=== PATIENT | male | born 1945 | race African-American/Black ===

== ENCOUNTER → 2017-02-05 | Outpatient (CLI) | payer MEDICARE ==
[~2017-02-05] MED LIST: ALPRAZOLAM2 MG PO; AMARYL2 MG PO; AMLACTIN 12% TP; AMLODIPINE BESY1 TAB PO; ASPIRIN ADULT L81 M2 PO; ASPIRIN81 M1 PO; Amaryl2 MG PO; BACLOFEN20 M1 PO; CLARITIN10 MG PO; CLONIDINE HCL0.2 MG PO; CLONIDINE0.2 MG PO; CYMBALTA30 MG PO; CYMBALTA60 MG PO; GLUCOPHAGE1000 MG PO; HCTZ/LISINOPRIL1 TA1 PO; HYDROCODONE BIT1 T11 PO; INDOMETHACIN50 MG PO; LABETALOL HCL300 MG PO; METFORMIN1000 MG PO; MOTRIN800 MG PO; NATURE'S BLEN2000 IU PO; NORVASC10 MG PO; OMEPRAZOLE D/R20 MG PO; PAMELOR25 MG PO; PERCOCET 325 MG1 TA2 PO; PRILOSEC20 M1 PO; TRAD5TAB1 PO; TRAMADOL HCL50 MG PO; TRAZODONE50 MG PO; VITAMIN D1000 IU PO; ZITHROMAX Z PA250 MG PO
== END | disposition home or self-care (01) ==
LOC: CT 01-23 14:00
DX: D35.02 Benign neoplasm of left adrenal gland (principal); M54.5 Low back pain; G89.29 Other chronic pain; R10.33 Periumbilical pain; N20.0 Calculus of kidney; D35.01 Benign neoplasm of right adrenal gland

== ENCOUNTER → 2017-02-25 | Outpatient (CLI) | payer MEDICARE ==
[2017-02-25 14:49] LABS: BASO % 0.7 % (0.0-1.0); EOS # 0.1 10*3/uL (0.0-0.4); EOS % 0.8 % (1.0-4.0); HEMATOCRIT 41.3 % (42.0-52.0); LYMPH # 2.2 10*3/uL (1.3-4.4); LYMPH % 36.2 % (27.0-41.0); MEAN CELL VOLUME 84.5 fl (80.0-94.0); MEAN CORPUSCULAR HGB 26.6 pg (27.0-31.0); MEAN CORPUSCULAR HGB CONC 31.5 g/dl (33.0-37.0); MEAN PLATELET VOLUME 10.5 fl (9.6-12.3); MONO # 0.4 10*3/uL (0.1-1.0); MONO % 6.1 % (3.0-9.0); NEUT # 3.4 10*3/uL (2.3-7.9); NEUT % 55.7 % (47.0-73.0); PLATELET COUNT AUTOMATED 212 10*3/uL (130-400); RED BLOOD COUNT 4.89 10*6/uL (4.50-5.90); RED CELL DISTRI WIDTH 15.1 % (0-14.5)
[2017-02-25 15:24] LABS: ALBUMIN 3.9 gm/dl (3.1-4.5); PHOSPHOROUS 3.4 mg/dL (2.5-4.9); POTASSIUM 3.9 mmol/L (3.5-5.1)
[2017-02-25 15:48] LABS: BILIRUBIN 1+ (NEGATIVE); BLOOD TRACE-LYSED (NEGATIVE); CLARITY CLEAR (CLEAR); COLOR YELLOW (YELLOW); GLUCOSE NEGATIVE (NEGATIVE); KETONE TRACE (NEGATIVE); LEUKO ESTERASE NEGATIVE (NEGATIVE); NITRITE NEGATIVE (NEGATIVE); PH 5.5 (5.0-9.0); PROTEIN 2+ (NEGATIVE); SPECIFIC GRAVITY >= 1.030 (1.005-1.030); UROBILINOGEN 0.2 E.U./dl (0.2-1.0)
[2017-02-25 16:00] LABS: BACTERIA TRACE; URINE REFLEX COMMENT NO (NO); WBC 0-2 wbc/hpf (0-5)
[2017-02-25 16:06] LABS: URINE TP/CRE RATIO 0.4 (<0.21)
== END | disposition home or self-care (01) ==
LOC: LAB 13:34
PROVIDERS: Internal Medicine Nephrology
DX: N18.3 Chronic kidney disease, stage 3 (moderate) (principal); N25.81 Secondary hyperparathyroidism of renal origin; Z79.899 Other long term (current) drug therapy

== ENCOUNTER → 2017-03-03 | Outpatient (CLI) | payer MEDICARE ==
[2017-03-03 12:28] LABS: URINE TOTAL PROTEIN CONC 35.8 mg/dL (<11.9)
== END | disposition home or self-care (01) ==
LOC: LAB 11:17
PROVIDERS: Internal Medicine Nephrology
DX: N18.3 Chronic kidney disease, stage 3 (moderate) (principal); N25.81 Secondary hyperparathyroidism of renal origin; Z79.899 Other long term (current) drug therapy

== ENCOUNTER → 2017-03-06 | Outpatient (CLI) | payer MEDICARE ==
[2017-03-06 15:33] LABS: BILIRUBIN 1+ (NEGATIVE); BLOOD 1+ (NEGATIVE); CLARITY SL CLOUDY (CLEAR); COLOR YELLOW (YELLOW); GLUCOSE NEGATIVE (NEGATIVE); KETONE TRACE (NEGATIVE); LEUKO ESTERASE TRACE (NEGATIVE); NITRITE NEGATIVE (NEGATIVE); PROTEIN 3+ (NEGATIVE); SPECIFIC GRAVITY 1.025 (1.005-1.030); UROBILINOGEN 0.2 E.U./dl (0.2-1.0)
[2017-03-06 15:38] LABS: BASO % 0.3 % (0.0-1.0); EOS % 0.7 % (1.0-4.0); HEMATOCRIT 39.9 % (42.0-52.0); HEMOGLOBIN 12.5 g/dl (14.0-18.0); LYMPH # 2.1 10*3/uL (1.3-4.4); LYMPH % 35.3 % (27.0-41.0); MEAN CELL VOLUME 84.4 fl (80.0-94.0); MEAN CORPUSCULAR HGB 26.4 pg (27.0-31.0); MEAN CORPUSCULAR HGB CONC 31.3 g/dl (33.0-37.0); MEAN PLATELET VOLUME 10.2 fl (9.6-12.3); MONO # 0.4 10*3/uL (0.1-1.0); NEUT # 3.4 10*3/uL (2.3-7.9); NEUT % 56.4 % (47.0-73.0); PLATELET COUNT AUTOMATED 202 10*3/uL (130-400); RED BLOOD COUNT 4.73 10*6/uL (4.50-5.90); RED CELL DISTRI WIDTH 14.8 % (0-14.5)
[2017-03-06 15:42] LABS: HYALINE CAST 0-2
[2017-03-06 15:53] LABS: HEMOGLOBIN A1c 6.3 % (4.8-5.6)
[2017-03-06 16:00] LABS: ALBUMIN 3.7 gm/dl (3.1-4.5); BILIRUBIN, TOTAL 0.4 mg/dl (0.2-1.0); POTASSIUM 4.1 mmol/L (3.5-5.1); TOTAL PROTEIN 7.5 gm/dL (6.4-8.2)
== END ==
LOC: LAB 14:27
PROVIDERS: Nurse Practitioner Family
DX: E55.9 Vitamin D deficiency, unspecified (principal); I10 Essential (primary) hypertension; E11.9 Type 2 diabetes mellitus without complications

== ENCOUNTER → 2017-05-26 | Outpatient (CLI) | payer MEDICARE | LOC: RESCLI 05-12 03:33 | DX: Z12.11 Encounter for screening for malignant neoplasm of colon (principal); E11.65 Type 2 diabetes mellitus with hyperglycemia; K21.9 Gastro-esophageal reflux disease without esophagitis; I10 Essential (primary) hypertension; G89.29 Other chronic pain; M54.41 Lumbago with sciatica, right side; E55.9 Vitamin D deficiency, unspecified; G62.9 Polyneuropathy, unspecified; D17.9 Benign lipomatous neoplasm, unspecified; Z86.73 Personal history of transient ischemic attack (TIA), and cerebral infarction without residual deficits; Z72.0 Tobacco use; Z71.6 Tobacco abuse counseling; Z88.0 Allergy status to penicillin ==

== ENCOUNTER → 2017-07-16 | Outpatient (CLI) | payer MEDICARE | END | disposition home or self-care (01) | LOC: RESCLI 01:38 | DX: Z12.11 Encounter for screening for malignant neoplasm of colon (principal); E11.65 Type 2 diabetes mellitus with hyperglycemia; K21.9 Gastro-esophageal reflux disease without esophagitis; I10 Essential (primary) hypertension; M54.41 Lumbago with sciatica, right side; G89.29 Other chronic pain; G62.9 Polyneuropathy, unspecified; D17.9 Benign lipomatous neoplasm, unspecified; E55.9 Vitamin D deficiency, unspecified; N52.9 Male erectile dysfunction, unspecified; Z86.73 Personal history of transient ischemic attack (TIA), and cerebral infarction without residual deficits; Z72.0 Tobacco use; Z71.6 Tobacco abuse counseling ==

== ENCOUNTER → 2017-10-15 | Outpatient (CLI) | payer MEDICARE | END | disposition home or self-care (01) | LOC: RESCLI 01:23 | DX: I10 Essential (primary) hypertension (principal); E11.65 Type 2 diabetes mellitus with hyperglycemia; K21.9 Gastro-esophageal reflux disease without esophagitis; G62.9 Polyneuropathy, unspecified; G89.29 Other chronic pain; M54.41 Lumbago with sciatica, right side; D17.9 Benign lipomatous neoplasm, unspecified; N52.9 Male erectile dysfunction, unspecified; E55.9 Vitamin D deficiency, unspecified; Z72.0 Tobacco use; Z86.73 Personal history of transient ischemic attack (TIA), and cerebral infarction without residual deficits ==

== ENCOUNTER → 2017-12-12 | Outpatient (CLI) | payer MEDICARE ==
[2017-12-12 11:35] LABS: BILIRUBIN NEGATIVE (NEGATIVE); BLOOD 2+ (NEGATIVE); CLARITY SL CLOUDY (CLEAR); COLOR YELLOW (YELLOW); GLUCOSE NEGATIVE (NEGATIVE); KETONE 1+ (NEGATIVE); LEUKO ESTERASE NEGATIVE (NEGATIVE); NITRITE NEGATIVE (NEGATIVE); PH 5.5 (5.0-9.0); SPECIFIC GRAVITY >= 1.030 (1.005-1.030); UROBILINOGEN 0.2 E.U./dl (0.2-1.0)
[2017-12-12 11:36] LABS: BASO % 0.3 % (0.0-1.0); EOS % 0.1 % (1.0-4.0); HEMATOCRIT 39.6 % (42.0-52.0); HEMOGLOBIN 12.9 g/dl (14.0-18.0); LYMPH % 25.5 % (27.0-41.0); MEAN CORPUSCULAR HGB 26.4 pg (27.0-31.0); MEAN CORPUSCULAR HGB CONC 32.6 g/dl (33.0-37.0); MEAN PLATELET VOLUME 10.4 fl (9.6-12.3); MONO # 0.8 10*3/uL (0.1-1.0); MONO % 6.6 % (3.0-9.0); NEUT # 7.8 10*3/uL (2.3-7.9); NEUT % 67.2 % (47.0-73.0); PLATELET COUNT AUTOMATED 243 10*3/uL (130-400); RED BLOOD COUNT 4.89 10*6/uL (4.50-5.90); WHITE BLOOD COUNT 11.7 10*3/uL (4.8-10.8)
[2017-12-12 11:51] LABS: BACTERIA TRACE
[2017-12-12 12:00] LABS: CREATININE 1.88 mg/dL (0.70-1.30); POTASSIUM 3.6 mmol/L (3.5-5.1)
[2017-12-12 12:04] LABS: ACT PARTIAL THROMBO TIME 24.3 SECONDS (20.8-31.5)
== END | disposition home or self-care (01) ==
LOC: LAB 09:32
PROVIDERS: Surgery
DX: Z01.818 Encounter for other preprocedural examination (principal); K21.9 Gastro-esophageal reflux disease without esophagitis; R79.89 Other specified abnormal findings of blood chemistry; R79.1 Abnormal coagulation profile

== ENCOUNTER → 2017-12-18 | Day surgery (SDC) | payer MEDICARE ==
[~2017-12-18] VITALS: Ht 167.6 cm; Wt 70.3 kg
[~2017-12-18] MED LIST changes: +NORCO 5-325 TA1 EACH PO
--- NOTE | ~2017-12-18 | O ---
[place], [place] OPERATIVE NOTE NAME: MARIEL DOUGLAS UNIT #: [id number] ROOM: DOCTOR: TIM JULIAN MD BIRTHDATE: [birth year] DOS: 12/18/2017 PREOPERATIVE DIAGNOSIS: Back and left lower quadrant lipomas. POSTOPERATIVE DIAGNOSIS: Back and left lower quadrant lipomas. PROCEDURE: Excision of back and left lower quadrant lipomas. SURGEON: Tim Julian MD STEEL MOLDER: YENNIFER. ANESTHESIA: MAC with local (1% plain lidocaine). INDICATIONS: This is a 72-year-old -Ivorian gentleman who has got a history of 2 lipomas, 1 on his back and 1 in the left lower quadrant that are symptomatic and he would like to have them removed. The procedure and its complications were explained to the patient in detail preoperatively. Complications that were discussed included but were not limited to bleeding, infection, hematoma/seroma/abscess formation and prolonged pain. He agreed to proceed. DESCRIPTION OF PROCEDURE: After identifying the patient, the patient was brought to the operating suite and placed in the right lateral position. It was decided to remove the back lipoma first. After time-out procedure was called, IV sedation was administered by the anesthesia team and the parts were then painted and draped in the usual sterile fashion. An incision was marked and local anesthesia (1% plain lidocaine) was infiltrated in the line of the incision. The incision was made and was deepened in layers. The capsule of the lipoma was incised and the lipoma was excised in its entirety with the help of blunt and sharp dissection. Total size of this lipoma was approximately 5.5 cm. It was sent for histopathological diagnosis. Hemostasis was achieved and saline was used for irrigation. Thereafter, the subcutaneous tissue was approximated with the help of 3-0 Vicryl in a running fashion and the skin edges were approximated with help of 4-0 Vicryl in a subcuticular running fashion. The patient was now turned in a supine position and the parts were then painted and draped in the usual sterile fashion. An elliptical incision was marked and local anesthesia was infiltrated in the line of incision. The skin incision was made and deepened in layers. The lipoma itself was excised in its entirety after blunt and sharp dissection and sent for histopathological diagnosis. This lipoma was approximately 15 x 15 cm. Hemostasis was achieved with the help of electrocautery. Thereafter, saline was used for irrigation. The subcutaneous tissue was then approximated with the help of 3-0 Vicryl in a running fashion and the skin edges were approximated with the help of subcuticular 4-0 Vicryl. A dressing was placed. The patient tolerated procedure well and was brought back to the recovery in stable fashion. There were no complications. Dr. Tim Julian, the attending surgeon, was present throughout the operating case. [place], [place] OPERATIVE NOTE NAME: MARIEL DOUGLAS UNIT #: [id number] ROOM: DOCTOR: TIM JULIAN MD BIRTHDATE: [birth year] Tim Julian MD CM:OPRECORD:OPERATIVE NOTE [id number] TIM JULIAN MD 12/19/17 1151 interface
[2017-12-18 09:09] VITALS: BP 140/70
[2017-12-18 10:55] VITALS: BP 105/51
[2017-12-18 11:10] VITALS: BP 105/61
[2017-12-18 11:23] VITALS: BP 125/83
== END | disposition home or self-care (01) ==
LOC: SDC 12-12 09:30
DX: D17.1 Benign lipomatous neoplasm of skin and subcutaneous tissue of trunk (principal); I10 Essential (primary) hypertension; F41.9 Anxiety disorder, unspecified; F32.9 Major depressive disorder, single episode, unspecified; Z83.3 Family history of diabetes mellitus; F17.210 Nicotine dependence, cigarettes, uncomplicated; Z86.73 Personal history of transient ischemic attack (TIA), and cerebral infarction without residual deficits; J45.909 Unspecified asthma, uncomplicated; K21.9 Gastro-esophageal reflux disease without esophagitis; Z79.899 Other long term (current) drug therapy; E11.40 Type 2 diabetes mellitus with diabetic neuropathy, unspecified; M19.90 Unspecified osteoarthritis, unspecified site

== ENCOUNTER 2018-07-04 12:29 | Inpatient (IN) | payer MEDICARE ==
[~2018-07-04] VITALS: Ht 167.6 cm; Wt 59.2 kg
--- NOTE | ~2018-07-04 | EKG ---
[place], [place] ELECTROCARDIOGRAM REPORT NAME: MARIEL DOUGLAS UNIT #: [id number] ROOM: 511 DOCTOR: BEKA DRAFT REPORT BIRTHDATE: [birth year] [facility] Test Date: 2018-07-04 Test Time: 12:54:36 Pat Name: MARIEL DOUGLAS Department: Room: 511 Gender: M Mine Wedge Sawyer: LEONIDES : 1945 Requested By: TOVA ROMO Order Number: [id number] Reading MD: Soha Vargas MD Measurements Intervals [place] Rate: 89 P: 64 MI: 179 QRS: 58 QRSD: 99 T: 55 QT: 364 QTc: 443 Interpretive Statements Sinus rhythm Probable left atrial enlargement Minimal ST elevation, anterior leads Electronically Signed On 07-05-2018 6:26:46 PDT by Soha Vargas MD CM:EKGRPT:ELECTROCARDIOGRAM REPORT [id number] TOVA EPPS DRAFT REPORT TOVA ROMO DO
[~2018-07-04 12:29] MED LIST changes: +CLEOCIN HCL150 MG PO
[2018-07-04 12:30] VITALS: BP 140/85
[2018-07-04 12:57] LABS: BASO % 0.3 % (0.0-1.0); EOS # 0.1 10*3/uL (0.0-0.4); EOS % 0.8 % (1.0-4.0); HEMATOCRIT 39.1 % (42.0-52.0); HEMOGLOBIN 12.3 g/dl (14.0-18.0); LYMPH # 2.1 10*3/uL (1.3-4.4); LYMPH % 27.9 % (27.0-41.0); MEAN CELL VOLUME 84.1 fl (80.0-94.0); MEAN CORPUSCULAR HGB 26.5 pg (27.0-31.0); MEAN CORPUSCULAR HGB CONC 31.5 g/dl (33.0-37.0); MEAN PLATELET VOLUME 10.3 fl (9.6-12.3); MONO # 0.7 10*3/uL (0.1-1.0); MONO % 8.8 % (3.0-9.0); NEUT # 4.6 10*3/uL (2.3-7.9); NEUT % 61.9 % (47.0-73.0); PLATELET COUNT AUTOMATED 216 10*3/uL (130-400); RED BLOOD COUNT 4.65 10*6/uL (4.50-5.90); RED CELL DISTRI WIDTH 15.3 % (0-14.5); WHITE BLOOD COUNT 7.4 10*3/uL (4.8-10.8)
[2018-07-04 13:03] LABS: ACT PARTIAL THROMBO TIME 25.6 SECONDS (20.8-31.5)
[2018-07-04 13:10] LABS: ALBUMIN 3.4 gm/dl (3.1-4.5); ALKALINE PHOSPHATASE 63 U/L (45-117); BUN 18 mg/dl (7-24); CHLORIDE 103 mmol/L (98-107); CREATININE 1.74 mg/dL (0.70-1.30); LIPASE 481 U/L (73-393); POTASSIUM 3.9 mmol/L (3.5-5.1); SGOT/AST 18 IU/L (3-35); SGPT/ALT 19 U/L (12-78); SODIUM 140 mmol/L (136-145); TOTAL PROTEIN 7.8 gm/dL (6.4-8.2)
[2018-07-04 13:14] LABS: TROPONIN I < 0.015 ng/ml (<0.045)
[2018-07-04 13:43] VITALS: BP 136/80
[2018-07-04 14:45] VITALS: BP 157/80
[2018-07-04] MEDS ORDERED: FLUOXETINE HYDR40 MG PO (15:05)
[2018-07-04] MEDS ORDERED: 'XANAX1 MG PO (15:36)
[2018-07-04] MEDS ORDERED: PROMETHAZINE-P118 ML PO (15:46)
[2018-07-04 16:00] VITALS: BP 157/80
[2018-07-04] MEDS ORDERED: TYLENOL WITH C1 EACH PO (19:01)
[2018-07-04] MEDS ORDERED: VIAGRA25 MG PO (19:09)
[2018-07-04] MEDS ORDERED: NEURONTIN300 MG PO (19:09)
[2018-07-04] MEDS ORDERED: CYCLOBENZAPRINE10 MG PO (19:10)
[2018-07-04] MEDS ORDERED: CIALIS10 MG PO (19:12)
[2018-07-04 20:00] VITALS: BP 173/79
[2018-07-05] VITALS: BP 151/82; BP 168/75
[2018-07-05 02:21] LABS: URINE AMPHETAMINES < 1000 (1000ng/ml); URINE BARBITURATES < 200 (200ng/ml); URINE BENZODIAZEPINES > 200 (200ng/ml); URINE CANNABINOIDS (THC) < 50 (50ng/ml); URINE COCAINE > 300 (300ng/ml); URINE METHADONE < 300 (300ng/ml); URINE OPIATES > 300 (300ng/ml); URINE PHENCYCLIDINE < 25 (25ng/ml)
[2018-07-05 06:50] LABS: BASO % 0.3 % (0.0-1.0); EOS # 0.1 10*3/uL (0.0-0.4); EOS % 0.6 % (1.0-4.0); HEMATOCRIT 39.3 % (42.0-52.0); HEMOGLOBIN 12.1 g/dl (14.0-18.0); LYMPH # 2.1 10*3/uL (1.3-4.4); LYMPH % 26.2 % (27.0-41.0); MEAN CELL VOLUME 85.6 fl (80.0-94.0); MEAN CORPUSCULAR HGB 26.4 pg (27.0-31.0); MEAN CORPUSCULAR HGB CONC 30.8 g/dl (33.0-37.0); MEAN PLATELET VOLUME 10.8 fl (9.6-12.3); MONO # 0.6 10*3/uL (0.1-1.0); NEUT # 5.2 10*3/uL (2.3-7.9); NEUT % 64.6 % (47.0-73.0); PLATELET COUNT AUTOMATED 218 10*3/uL (130-400); RED BLOOD COUNT 4.59 10*6/uL (4.50-5.90); RED CELL DISTRI WIDTH 15.1 % (0-14.5)
[2018-07-05 07:05] LABS: CREATININE 1.76 mg/dL (0.70-1.30); FREE T4 1.02 ng/dl (0.76-1.46); PHOSPHOROUS 2.6 mg/dL (2.5-4.9); POTASSIUM 3.8 mmol/L (3.5-5.1)
[2018-07-05 07:13] LABS: THYROID STIM HORMONE (HS) 0.626 uIU/ml (0.358-4.75)
[2018-07-05 07:19] LABS: ACT PARTIAL THROMBO TIME 26.3 SECONDS (20.8-31.5)
[2018-07-05 08:00] VITALS: BP 172/86
[2018-07-05 08:12] LABS: VITAMIN D, 25-HYDROXY 30.2 ng/mL (30-100)
[2018-07-05 12:00] VITALS: BP 172/86
[2018-07-05 16:00] VITALS: BP 174/84
[2018-07-05 20:00] VITALS: BP 157/60
[2018-07-06] VITALS: BP 147/60
[2018-07-06 08:00] VITALS: BP 145/65
[2018-07-06] MEDS ORDERED: PROTONIX40 MG PO (13:38)
== END 2018-07-06 15:00 | disposition home or self-care (01) | DRG 897 ==
LOC: ED 12:29 → 5E 13:49 → EDHOLD 13:49 → 5E 14:05
PROVIDERS: Emergency Medicine; Internal Medicine
DX: F11.10 Opioid abuse, uncomplicated (principal); F14.929 Cocaine use, unspecified with intoxication, unspecified; R06.6 Hiccough; F12.10 Cannabis abuse, uncomplicated; M10.9 Gout, unspecified; G89.4 Chronic pain syndrome; B19.20 Unspecified viral hepatitis C without hepatic coma; I10 Essential (primary) hypertension; F17.210 Nicotine dependence, cigarettes, uncomplicated; J06.9 Acute upper respiratory infection, unspecified; R26.81 Unsteadiness on feet; Z71.6 Tobacco abuse counseling; Z88.0 Allergy status to penicillin; I25.2 Old myocardial infarction; Z83.3 Family history of diabetes mellitus; Z86.73 Personal history of transient ischemic attack (TIA), and cerebral infarction without residual deficits; Z82.49 Family history of ischemic heart disease and other diseases of the circulatory system; Z82.0 Family history of epilepsy and other diseases of the nervous system; Z79.899 Other long term (current) drug therapy; Z79.82 Long term (current) use of aspirin; F13.929 Sedative, hypnotic or anxiolytic use, unspecified with intoxication, unspecified

== ENCOUNTER → 2018-08-19 | Outpatient (CLI) | payer MEDICARE ==
[~2018-08-19] MED LIST changes: +'XANAX1 MG PO; +CIALIS10 MG PO; +CYCLOBENZAPRINE10 MG PO; +FLUOXETINE HYDR40 MG PO; +NEURONTIN300 MG PO; +PROMETHAZINE-P118 ML PO; +PROTONIX40 MG PO; +TYLENOL WITH C1 EACH PO; +VIAGRA25 MG PO
[2018-08-19 12:53] LABS: ALBUMIN 3.7 gm/dl (3.1-4.5); CREATININE 1.73 mg/dL (0.70-1.30); POTASSIUM 3.5 mmol/L (3.5-5.1); TOTAL PROTEIN 8.4 gm/dL (6.4-8.2)
[2018-08-19 12:57] LABS: BASO % 0.4 % (0.0-1.0); EOS # 0.1 10*3/uL (0.0-0.4); HEMOGLOBIN 12.9 g/dl (14.0-18.0); LYMPH # 2.5 10*3/uL (1.3-4.4); LYMPH % 36.7 % (27.0-41.0); MEAN CELL VOLUME 85.2 fl (80.0-94.0); MEAN CORPUSCULAR HGB 26.2 pg (27.0-31.0); MEAN CORPUSCULAR HGB CONC 30.7 g/dl (33.0-37.0); MEAN PLATELET VOLUME 10.4 fl (9.6-12.3); MONO # 0.5 10*3/uL (0.1-1.0); NEUT # 3.7 10*3/uL (2.3-7.9); NEUT % 54.5 % (47.0-73.0); PLATELET COUNT AUTOMATED 234 10*3/uL (130-400); RED BLOOD COUNT 4.93 10*6/uL (4.50-5.90); RED CELL DISTRI WIDTH 15.3 % (0-14.5); WHITE BLOOD COUNT 6.8 10*3/uL (4.8-10.8)
== END | disposition home or self-care (01) ==
LOC: LAB 11:08
PROVIDERS: Internal Medicine
DX: N40.1 Benign prostatic hyperplasia with lower urinary tract symptoms (principal); E55.9 Vitamin D deficiency, unspecified; E11.65 Type 2 diabetes mellitus with hyperglycemia; I10 Essential (primary) hypertension

== ENCOUNTER 2020-06-01 17:03 | Emergency (ER) | payer OTHER ==
[~2020-06-01] VITALS: Ht 167.6 cm; Wt 59.0 kg
[2020-06-01 18:58] LABS: LIPASE 893 U/L (73-393); TROPONIN I < 0.015 ng/ml (<0.045)
[2020-06-01 19:00] LABS: ALBUMIN 3.5 gm/dl (3.1-4.5); BILIRUBIN, DIRECT 0.1 mg/dL (0.0-0.2)
== END 2020-06-01 19:51 | disposition left against medical advice (07) ==
LOC: ED 17:03
PROVIDERS: Nurse Practitioner Family
DX: I16.1 Hypertensive emergency (principal); N17.9 Acute kidney failure, unspecified; R74.8 Abnormal levels of other serum enzymes; F17.210 Nicotine dependence, cigarettes, uncomplicated; Z79.899 Other long term (current) drug therapy; Z79.82 Long term (current) use of aspirin; Z88.0 Allergy status to penicillin

== ENCOUNTER 2020-06-01 20:36 | Inpatient (IN) | payer OTHER ==
[2020-06-01] VITALS (12 sets, daily range): BP systolic 168–212; BP diastolic 94–120
[~2020-06-01] VITALS: Ht 165.1 cm; Wt 58.3 kg
[~2020-06-01 20:36] MED LIST changes: -VITAMIN D1000 IU PO; +VITAMIN D350 MC2 PO
[2020-06-02] VITALS (7 sets, daily range): BP systolic 154–212; BP diastolic 74–102
[2020-06-02 05:31] LABS: CREATININE 2.15 mg/dL (0.70-1.30); POTASSIUM 3.4 mmol/L (3.5-5.1)
[2020-06-02 05:39] LABS: THYROID STIM HORMONE (HS) 2.13 uIU/ml (0.358-4.75)
[2020-06-02 06:02] LABS: BASO % 0.3 % (0.0-1.0); EOS % 0.7 % (1.0-4.0); HEMATOCRIT 43.2 % (42.0-52.0); LYMPH # 2.3 10*3/uL (1.3-4.4); LYMPH % 39.1 % (27.0-41.0); MEAN CELL VOLUME 86.2 fl (80.0-94.0); MEAN CORPUSCULAR HGB 26.5 pg (27.0-31.0); MEAN CORPUSCULAR HGB CONC 30.8 g/dl (33.0-37.0); MEAN PLATELET VOLUME 10.9 fl (9.6-12.3); MONO # 0.4 10*3/uL (0.1-1.0); MONO % 6.7 % (3.0-9.0); NEUT # 3.1 10*3/uL (2.3-7.9); PLATELET COUNT AUTOMATED 195 10*3/uL (130-400); RED BLOOD COUNT 5.01 10*6/uL (4.50-5.90); RED CELL DISTRI WIDTH 15.3 % (0-14.5); WHITE BLOOD COUNT 5.8 10*3/uL (4.8-10.8)
[2020-06-03] VITALS: BP 160/70
[2020-06-03 06:12] LABS: BASO % 0.4 % (0.0-1.0); EOS # 0.1 10*3/uL (0.0-0.4); EOS % 1.1 % (1.0-4.0); LYMPH # 2.2 10*3/uL (1.3-4.4); MEAN CELL VOLUME 85.9 fl (80.0-94.0); MEAN CORPUSCULAR HGB 26.6 pg (27.0-31.0); MONO # 0.4 10*3/uL (0.1-1.0); MONO % 7.5 % (3.0-9.0); NEUT # 2.9 10*3/uL (2.3-7.9); NEUT % 51.8 % (47.0-73.0); PLATELET COUNT AUTOMATED 199 10*3/uL (130-400); RED BLOOD COUNT 4.89 10*6/uL (4.50-5.90); RED CELL DISTRI WIDTH 15.3 % (0-14.5); WHITE BLOOD COUNT 5.6 10*3/uL (4.8-10.8)
[2020-06-03 06:15] LABS: CREATININE 2.16 mg/dL (0.70-1.30)
[2020-06-03 08:00] VITALS: BP 170/80; BP 176/90
[2020-06-03 08:33] LABS: URINE AMPHETAMINES < 1000 (1000ng/ml); URINE BARBITURATES < 200 (200ng/ml); URINE BENZODIAZEPINES < 200 (200ng/ml); URINE CANNABINOIDS (THC) < 50 (50ng/ml); URINE COCAINE > 300 (300ng/ml); URINE METHADONE < 300 (300ng/ml); URINE OPIATES > 300 (300ng/ml)
[2020-06-03 08:56] LABS: URINE PHENCYCLIDINE < 25 (25ng/ml)
[2020-06-03 10:49] LABS: BILIRUBIN NEGATIVE (NEGATIVE); BLOOD TRACE-LYSED (NEGATIVE); CLARITY CLEAR (CLEAR); COLOR YELLOW (YELLOW); GLUCOSE TRACE (NEGATIVE); KETONE NEGATIVE (NEGATIVE); PH 6.5 (5.0-9.0); SPECIFIC GRAVITY 1.015 (1.005-1.030); UROBILINOGEN 0.2 E.U./dl (0.2-1.0)
[2020-06-03 10:50] LABS: LEUKO ESTERASE NEGATIVE (NEGATIVE); NITRITE NEGATIVE (NEGATIVE)
[2020-06-03 10:53] LABS: BACTERIA 2+
[2020-06-03 12:00] VITALS: BP 196/96
[2020-06-03 16:00] VITALS: BP 172/92
[2020-06-03 20:00] VITALS: BP 193/99
[2020-06-03 20:11] VITALS: BP 190/90
[2020-06-04] VITALS: BP 147/97
[2020-06-04 02:50] VITALS: BP 141/67
[2020-06-04 06:09] LABS: BASO % 0.2 % (0.0-1.0); LYMPH # 1.2 10*3/uL (1.3-4.4); LYMPH % 9.3 % (27.0-41.0); MEAN CELL VOLUME 83.8 fl (80.0-94.0); MEAN CORPUSCULAR HGB 26.4 pg (27.0-31.0); MEAN CORPUSCULAR HGB CONC 31.5 g/dl (33.0-37.0); MEAN PLATELET VOLUME 10.9 fl (9.6-12.3); MONO # 0.5 10*3/uL (0.1-1.0); MONO % 3.9 % (3.0-9.0); NEUT # 10.8 10*3/uL (2.3-7.9); NEUT % 86.3 % (47.0-73.0); PLATELET COUNT AUTOMATED 207 10*3/uL (130-400); RED BLOOD COUNT 4.89 10*6/uL (4.50-5.90); RED CELL DISTRI WIDTH 15.2 % (0-14.5); WHITE BLOOD COUNT 12.5 10*3/uL (4.8-10.8)
[2020-06-04 06:15] LABS: ALBUMIN 2.9 gm/dl (3.1-4.5); CREATININE 2.16 mg/dL (0.70-1.30); POTASSIUM 3.5 mmol/L (3.5-5.1); TOTAL PROTEIN 6.7 gm/dL (6.4-8.2)
[2020-06-04 08:00] VITALS: BP 148/86
[2020-06-04 12:00] VITALS: BP 156/76
[2020-06-04 16:00] VITALS: BP 149/84
[2020-06-04 20:00] VITALS: BP 136/71
[2020-06-05] VITALS: BP 138/86
[2020-06-05 06:12] VITALS: BP 156/85
[2020-06-05 06:29] LABS: BASO % 0.1 % (0.0-1.0); EOS % 0.2 % (1.0-4.0); HEMATOCRIT 44.1 % (42.0-52.0); LYMPH % 17.5 % (27.0-41.0); MEAN CORPUSCULAR HGB 26.3 pg (27.0-31.0); MEAN CORPUSCULAR HGB CONC 31.3 g/dl (33.0-37.0); MEAN PLATELET VOLUME 11.7 fl (9.6-12.3); MONO # 0.5 10*3/uL (0.1-1.0); MONO % 4.7 % (3.0-9.0); NEUT # 8.7 10*3/uL (2.3-7.9); NEUT % 77.2 % (47.0-73.0); PLATELET COUNT AUTOMATED 224 10*3/uL (130-400); RED BLOOD COUNT 5.25 10*6/uL (4.50-5.90); RED CELL DISTRI WIDTH 15.5 % (0-14.5); WHITE BLOOD COUNT 11.2 10*3/uL (4.8-10.8)
[2020-06-05 07:03] LABS: ALBUMIN 2.8 gm/dl (3.1-4.5); CREATININE 2.25 mg/dL (0.70-1.30); POTASSIUM 3.7 mmol/L (3.5-5.1); TOTAL PROTEIN 7.3 gm/dL (6.4-8.2)
[2020-06-05 08:00] VITALS: BP 150/82
[2020-06-05 12:00] VITALS: BP 138/89
[2020-06-05 16:00] VITALS: BP 130/76
[2020-06-05 16:08] LABS: ALPHA-1-GLOBULIN 0.2 g/dL (0.0-0.4); ALPHA-2-GLOBULIN 0.9 g/dL (0.4-1.0); BETA GLOBULIN 1.1 g/dL (0.7-1.3); GAMMA GLOBULIN 0.9 g/dL (0.4-1.8); GLOBULIN, TOTAL 3.1 g/dL (2.2-3.9); M-SPIKE Not Observed g/dL (Not Observed); TOTAL PROTEIN, SERUM 6.1 g/dL (6.0-8.5)
[2020-06-05 20:00] VITALS: BP 150/79
[2020-06-06] VITALS (7 sets, daily range): BP systolic 142–196; BP diastolic 75–96
[2020-06-06 06:29] LABS: BASO % 0.2 % (0.0-1.0); EOS % 0.2 % (1.0-4.0); HEMATOCRIT 42.3 % (42.0-52.0); LYMPH # 1.4 10*3/uL (1.3-4.4); LYMPH % 12.3 % (27.0-41.0); MEAN CELL VOLUME 84.3 fl (80.0-94.0); MEAN CORPUSCULAR HGB 26.1 pg (27.0-31.0); MONO # 0.5 10*3/uL (0.1-1.0); MONO % 4.9 % (3.0-9.0); NEUT # 9.1 10*3/uL (2.3-7.9); PLATELET COUNT AUTOMATED 209 10*3/uL (130-400); RED BLOOD COUNT 5.02 10*6/uL (4.50-5.90); RED CELL DISTRI WIDTH 15.3 % (0-14.5)
[2020-06-06 06:45] LABS: CREATININE 2.37 mg/dL (0.70-1.30); POTASSIUM 4.1 mmol/L (3.5-5.1)
[2020-06-07] VITALS: BP 167/87
[2020-06-07 04:46] VITALS: BP 173/76
[2020-06-07 06:40] LABS: BASO % 0.1 % (0.0-1.0); EOS % 0.1 % (1.0-4.0); HEMATOCRIT 42.2 % (42.0-52.0); LYMPH # 1.4 10*3/uL (1.3-4.4); LYMPH % 12.9 % (27.0-41.0); MEAN CELL VOLUME 81.6 fl (80.0-94.0); MEAN CORPUSCULAR HGB 26.3 pg (27.0-31.0); MEAN CORPUSCULAR HGB CONC 32.2 g/dl (33.0-37.0); MEAN PLATELET VOLUME 10.9 fl (9.6-12.3); MONO # 0.5 10*3/uL (0.1-1.0); MONO % 4.6 % (3.0-9.0); PLATELET COUNT AUTOMATED 205 10*3/uL (130-400); RED BLOOD COUNT 5.17 10*6/uL (4.50-5.90); RED CELL DISTRI WIDTH 15.2 % (0-14.5); WHITE BLOOD COUNT 10.9 10*3/uL (4.8-10.8)
[2020-06-07 06:53] LABS: CREATININE 2.24 mg/dL (0.70-1.30); POTASSIUM 4.1 mmol/L (3.5-5.1)
[2020-06-07 08:00] VITALS: BP 153/76
[2020-06-07 12:00] VITALS: BP 156/74
[2020-06-07 16:00] VITALS: BP 130/61
[2020-06-07 20:00] VITALS: BP 148/71
[2020-06-08 06:34] LABS: BASO % 0.3 % (0.0-1.0); EOS # 0.1 10*3/uL (0.0-0.4); EOS % 1.1 % (1.0-4.0); HEMATOCRIT 41.8 % (42.0-52.0); LYMPH # 1.9 10*3/uL (1.3-4.4); MEAN CELL VOLUME 84.1 fl (80.0-94.0); MEAN CORPUSCULAR HGB CONC 30.9 g/dl (33.0-37.0); MEAN PLATELET VOLUME 10.8 fl (9.6-12.3); MONO # 0.5 10*3/uL (0.1-1.0); MONO % 7.8 % (3.0-9.0); NEUT # 3.7 10*3/uL (2.3-7.9); NEUT % 59.5 % (47.0-73.0); PLATELET COUNT AUTOMATED 228 10*3/uL (130-400); RED BLOOD COUNT 4.97 10*6/uL (4.50-5.90); RED CELL DISTRI WIDTH 15.3 % (0-14.5); WHITE BLOOD COUNT 6.2 10*3/uL (4.8-10.8)
[2020-06-08 07:02] LABS: CREATININE 2.1 mg/dL (0.70-1.30); POTASSIUM 3.9 mmol/L (3.5-5.1)
[2020-06-08 08:00] VITALS: BP 152/82
[2020-06-08 12:00] VITALS: BP 151/81
[2020-06-08 16:00] VITALS: BP 151/71
[2020-06-08 20:00] VITALS: BP 153/74
[2020-06-09] VITALS: BP 181/75
[2020-06-09 06:16] LABS: BASO % 0.4 % (0.0-1.0); EOS % 0.5 % (1.0-4.0); HEMATOCRIT 38.6 % (42.0-52.0); LYMPH % 24.4 % (27.0-41.0); MEAN CELL VOLUME 83.7 fl (80.0-94.0); MEAN CORPUSCULAR HGB 26.5 pg (27.0-31.0); MEAN CORPUSCULAR HGB CONC 31.6 g/dl (33.0-37.0); MEAN PLATELET VOLUME 11.1 fl (9.6-12.3); MONO # 0.7 10*3/uL (0.1-1.0); MONO % 8.2 % (3.0-9.0); NEUT # 5.3 10*3/uL (2.3-7.9); NEUT % 66.3 % (47.0-73.0); PLATELET COUNT AUTOMATED 248 10*3/uL (130-400); RED BLOOD COUNT 4.61 10*6/uL (4.50-5.90); RED CELL DISTRI WIDTH 14.9 % (0-14.5)
[2020-06-09 06:27] LABS: CREATININE 2.33 mg/dL (0.70-1.30); POTASSIUM 3.9 mmol/L (3.5-5.1)
[2020-06-09 12:00] VITALS: BP 191/79
[2020-06-09] MEDS ORDERED: CIPRO500 MG PO (12:07)
[2020-06-09] MEDS ORDERED: Zestril,Prinivi40 MG PO (12:07)
[2020-06-09] MEDS ORDERED: TAMSULOSIN HCL0.4 MG PO (12:07)
[2020-06-09 12:51] VITALS: BP 152/84
[2020-06-09 16:00] VITALS: BP 120/68
[2020-06-10] MEDS ORDERED: APRESOLINE25 MG PO (10:16)
== END 2020-06-09 16:28 | disposition home health service (06) | DRG 304 ==
LOC: ED 20:36 → EDHOLD 21:32 → 5E 21:32 → 3N 06-09 17:18 → 5E 06-09 17:18
PROVIDERS: Hospitalist; Student in an Organized Health Care Education/Training Program; ADMIT Internal Medicine
DX: I16.1 Hypertensive emergency (principal); N17.0 Acute kidney failure with tubular necrosis; E44.0 Moderate protein-calorie malnutrition; N39.0 Urinary tract infection, site not specified; E87.8 Other disorders of electrolyte and fluid balance, not elsewhere classified; D64.9 Anemia, unspecified; R73.9 Hyperglycemia, unspecified; E83.41 Hypermagnesemia; M19.90 Unspecified osteoarthritis, unspecified site; F14.10 Cocaine abuse, uncomplicated; G90.8 Other disorders of autonomic nervous system; N18.3 Chronic kidney disease, stage 3 (moderate); F41.9 Anxiety disorder, unspecified; I12.9 Hypertensive chronic kidney disease with stage 1 through stage 4 chronic kidney disease, or unspecified chronic kidney disease; G89.4 Chronic pain syndrome; M10.9 Gout, unspecified; R55 Syncope and collapse; F32.9 Major depressive disorder, single episode, unspecified; R74.8 Abnormal levels of other serum enzymes; F10.10 Alcohol abuse, uncomplicated; K21.9 Gastro-esophageal reflux disease without esophagitis; F03.90 Unspecified dementia, unspecified severity, without behavioral disturbance, psychotic disturbance, mood disturbance, and anxiety; B96.89 Other specified bacterial agents as the cause of diseases classified elsewhere; E83.39 Other disorders of phosphorus metabolism; B19.20 Unspecified viral hepatitis C without hepatic coma; N20.0 Calculus of kidney; I08.1 Rheumatic disorders of both mitral and tricuspid valves; F17.210 Nicotine dependence, cigarettes, uncomplicated; Z82.49 Family history of ischemic heart disease and other diseases of the circulatory system; Z82.0 Family history of epilepsy and other diseases of the nervous system; Z88.0 Allergy status to penicillin; Z71.6 Tobacco abuse counseling; I25.2 Old myocardial infarction; Z86.73 Personal history of transient ischemic attack (TIA), and cerebral infarction without residual deficits; Z79.899 Other long term (current) drug therapy; Z79.82 Long term (current) use of aspirin; Z79.84 Long term (current) use of oral hypoglycemic drugs; Z03.818 Encounter for observation for suspected exposure to other biological agents ruled out; Z68.21 Body mass index [BMI] 21.0-21.9, adult

== ENCOUNTER → 2020-06-01 | Outpatient (CLI) | payer OTHER ==
[2020-06-01 16:53] LABS: BASO % 0.3 % (0.0-1.0); EOS % 0.6 % (1.0-4.0); HEMATOCRIT 41.7 % (42.0-52.0); LYMPH # 2.3 10*3/uL (1.3-4.4); LYMPH % 36.5 % (27.0-41.0); MEAN CELL VOLUME 84.1 fl (80.0-94.0); MEAN CORPUSCULAR HGB 26.4 pg (27.0-31.0); MEAN CORPUSCULAR HGB CONC 31.4 g/dl (33.0-37.0); MEAN PLATELET VOLUME 10.8 fl (9.6-12.3); MONO # 0.4 10*3/uL (0.1-1.0); MONO % 6.4 % (3.0-9.0); NEUT # 3.5 10*3/uL (2.3-7.9); PLATELET COUNT AUTOMATED 216 10*3/uL (130-400); RED BLOOD COUNT 4.96 10*6/uL (4.50-5.90); RED CELL DISTRI WIDTH 15.1 % (0-14.5); WHITE BLOOD COUNT 6.3 10*3/uL (4.8-10.8)
[2020-06-01 17:22] LABS: ALBUMIN 3.4 gm/dl (3.1-4.5); CREATININE 2.51 mg/dL (0.70-1.30); POTASSIUM 3.9 mmol/L (3.5-5.1)
[2020-06-01 17:54] LABS: BACTERIA TRACE; BILIRUBIN NEGATIVE (NEGATIVE); BLOOD 1+ (NEGATIVE); CLARITY CLEAR (CLEAR); COLOR YELLOW (YELLOW); GLUCOSE NEGATIVE (NEGATIVE); KETONE NEGATIVE (NEGATIVE); LEUKO ESTERASE NEGATIVE (NEGATIVE); NITRITE NEGATIVE (NEGATIVE); SPECIFIC GRAVITY 1.015 (1.005-1.030); UROBILINOGEN 0.2 E.U./dl (0.2-1.0)
== END | disposition home or self-care (01) ==
LOC: LAB 16:25
PROVIDERS: Internal Medicine Nephrology
DX: N18.3 Chronic kidney disease, stage 3 (moderate) (principal)

== ENCOUNTER 2020-06-09 12:19 | Inpatient (IN) | payer OTHER ==
[~2020-06-09] VITALS: Ht 165.1 cm; Wt 58.1 kg
[~2020-06-09 12:19] MED LIST changes: +CIPRO500 MG PO; +TAMSULOSIN HCL0.4 MG PO; +Zestril,Prinivi40 MG PO
[2020-06-09 16:43] VITALS: BP 164/72
[2020-06-09 19:39] VITALS: BP 146/74
[2020-06-10 07:18] LABS: BASO % 0.4 % (0.0-1.0); EOS # 0.1 10*3/uL (0.0-0.4); EOS % 1.5 % (1.0-4.0); HEMATOCRIT 42.7 % (42.0-52.0); LYMPH # 2.2 10*3/uL (1.3-4.4); LYMPH % 29.7 % (27.0-41.0); MEAN CELL VOLUME 85.1 fl (80.0-94.0); MEAN CORPUSCULAR HGB 26.3 pg (27.0-31.0); MEAN CORPUSCULAR HGB CONC 30.9 g/dl (33.0-37.0); MEAN PLATELET VOLUME 10.3 fl (9.6-12.3); MONO # 0.5 10*3/uL (0.1-1.0); MONO % 6.8 % (3.0-9.0); NEUT # 4.5 10*3/uL (2.3-7.9); NEUT % 61.3 % (47.0-73.0); PLATELET COUNT AUTOMATED 268 10*3/uL (130-400); RED BLOOD COUNT 5.02 10*6/uL (4.50-5.90); WHITE BLOOD COUNT 7.3 10*3/uL (4.8-10.8)
[2020-06-10 07:33] LABS: ALBUMIN 2.9 gm/dl (3.1-4.5); CREATININE 2.15 mg/dL (0.70-1.30); POTASSIUM 3.9 mmol/L (3.5-5.1); TOTAL PROTEIN 7.8 gm/dL (6.4-8.2)
[2020-06-10 07:40] LABS: THYROID STIM HORMONE (HS) 0.716 uIU/ml (0.358-4.75)
[2020-06-10 07:49] VITALS: BP 157/78
[2020-06-10 08:16] LABS: VITAMIN D, 25-HYDROXY 27.6 ng/mL (30-100)
[2020-06-10] MEDS ORDERED: APRESOLINE25 MG PO (10:16)
[2020-06-10 19:09] VITALS: BP 140/78
[2020-06-11 07:26] VITALS: BP 139/79
[2020-06-11 20:00] VITALS: BP 143/90
[2020-06-12 07:27] VITALS: BP 142/72
[2020-06-12 20:00] VITALS: BP 133/70
[2020-06-13 07:46] VITALS: BP 138/87
[2020-06-13 19:42] VITALS: BP 140/80
[2020-06-14 06:29] VITALS: BP 142/82
[2020-06-14 20:00] VITALS: BP 155/72
[2020-06-15 07:55] VITALS: BP 136/67
[2020-06-15 10:34] VITALS: BP 170/80
[2020-06-15 13:26] VITALS: BP 150/74
[2020-06-15 14:20] VITALS: BP 148/76
[2020-06-15 16:29] VITALS: BP 150/80
[2020-06-15 16:31] VITALS: BP 150/80
[2020-06-16 07:51] VITALS: BP 171/86
[2020-06-16 11:05] VITALS: BP 160/80
[2020-06-16 12:59] VITALS: BP 142/76
[2020-06-16 19:59] VITALS: BP 121/67
[2020-06-17 07:46] VITALS: BP 141/65
[2020-06-17 12:57] VITALS: BP 148/62
[2020-06-17 19:27] VITALS: BP 132/64
[2020-06-18 07:43] VITALS: BP 146/76
[2020-06-18 20:00] VITALS: BP 125/49
[2020-06-19 08:00] VITALS: BP 117/61
[2020-06-19 20:00] VITALS: BP 147/79
[2020-06-20 08:05] VITALS: BP 143/69
[2020-06-20 19:18] VITALS: BP 143/69
[2020-06-21 08:00] VITALS: BP 136/64
[2020-06-21 19:54] VITALS: BP 132/61
[2020-06-22 07:55] VITALS: BP 158/82
[2020-06-22] MEDS ORDERED: RIVASTIGMINE1 EAC2 T ×2 (09:05)
[2020-06-22] MEDS ORDERED: MEMANTINE HCL10 MG PO ×3 (09:05→10:01)
[2020-06-22] MEDS ORDERED: ZIPRASIDONE HCL80 M1 PO ×3 (09:05→10:01)
[2020-06-22] MEDS ORDERED: ZIPRASIDONE HCL40 MG PO ×3 (09:05→10:01)
[2020-06-22] MEDS ORDERED: EXELON1 EAC2 TD (10:01)
[2020-06-23] MEDS ORDERED: GEODON40 MG PO (01:17)
[2020-06-23] MEDS ORDERED: RIVASTIGMINE TAR6 M1 PO (01:20)
[2020-06-23] MEDS ORDERED: RIVASTIGMINE1 EAC2 T (02:31)
== END 2020-06-22 14:51 | DRG 883 ==
LOC: 3N 12:19
PROVIDERS: Counselor Professional; ADMIT Psychiatry & Neurology Psychiatry; ATTEND Psychiatry & Neurology Psychiatry
DX: F63.81 Intermittent explosive disorder (principal); E44.0 Moderate protein-calorie malnutrition; F39 Unspecified mood [affective] disorder; F32.5 Major depressive disorder, single episode, in full remission; Z20.828 Contact with and (suspected) exposure to other viral communicable diseases; M19.90 Unspecified osteoarthritis, unspecified site; G89.4 Chronic pain syndrome; K21.9 Gastro-esophageal reflux disease without esophagitis; F17.210 Nicotine dependence, cigarettes, uncomplicated; I25.10 Atherosclerotic heart disease of native coronary artery without angina pectoris; D64.9 Anemia, unspecified; N18.3 Chronic kidney disease, stage 3 (moderate); E55.9 Vitamin D deficiency, unspecified; M1A.9XX0 Chronic gout, unspecified, without tophus (tophi); R00.0 Tachycardia, unspecified; F03.90 Unspecified dementia, unspecified severity, without behavioral disturbance, psychotic disturbance, mood disturbance, and anxiety; I12.9 Hypertensive chronic kidney disease with stage 1 through stage 4 chronic kidney disease, or unspecified chronic kidney disease; F10.21 Alcohol dependence, in remission; F14.21 Cocaine dependence, in remission; F41.1 Generalized anxiety disorder; R26.2 Difficulty in walking, not elsewhere classified; Z86.19 Personal history of other infectious and parasitic diseases; I25.2 Old myocardial infarction; Z86.73 Personal history of transient ischemic attack (TIA), and cerebral infarction without residual deficits; Z81.8 Family history of other mental and behavioral disorders; Z88.0 Allergy status to penicillin; Z71.6 Tobacco abuse counseling; Z68.22 Body mass index [BMI] 22.0-22.9, adult

== ENCOUNTER 2020-06-22 21:19 | Inpatient (IN) | payer OTHER ==
[~2020-06-22] VITALS: Ht 165.1 cm; Wt 60.5 kg
[~2020-06-22 21:19] MED LIST changes: +APRESOLINE25 MG PO; +EXELON1 EAC2 TD; +MEMANTINE HCL10 MG PO; +RIVASTIGMINE1 EAC2 T; +ZIPRASIDONE HCL40 MG PO; +ZIPRASIDONE HCL80 M1 PO
[2020-06-22 21:36] VITALS: BP 171/92
[2020-06-22 22:17] LABS: BASO % 0.3 % (0.0-1.0); EOS % 0.6 % (1.0-4.0); LYMPH # 1.4 10*3/uL (1.3-4.4); LYMPH % 19.2 % (27.0-41.0); MEAN CELL VOLUME 83.5 fl (80.0-94.0); MEAN CORPUSCULAR HGB 25.8 pg (27.0-31.0); MEAN CORPUSCULAR HGB CONC 30.8 g/dl (33.0-37.0); MEAN PLATELET VOLUME 10.4 fl (9.6-12.3); MONO # 0.7 10*3/uL (0.1-1.0); MONO % 9.7 % (3.0-9.0); NEUT # 5.1 10*3/uL (2.3-7.9); NEUT % 69.9 % (47.0-73.0); PLATELET COUNT AUTOMATED 324 10*3/uL (130-400); RED BLOOD COUNT 4.31 10*6/uL (4.50-5.90); WHITE BLOOD COUNT 7.2 10*3/uL (4.8-10.8)
[2020-06-22 22:37] LABS: ALBUMIN 3.4 gm/dl (3.1-4.5); ALKALINE PHOSPHATASE 63 U/L (45-117); BUN 31 mg/dl (7-24); CHLORIDE 109 mmol/L (98-107); CREATININE 3.05 mg/dL (0.70-1.30); POTASSIUM 4.4 mmol/L (3.5-5.1); SGOT/AST 20 IU/L (3-35); SGPT/ALT 18 U/L (12-78); SODIUM 140 mmol/L (136-145); TOTAL PROTEIN 8.2 gm/dL (6.4-8.2)
[2020-06-22 22:40] LABS: ACETAMINOPHEN (TYLENOL) < 5.0 ug/ml (10-30); ETHYL ALCOHOL < 3.0 mg/dl (<3)
[2020-06-22 23:10] LABS: BILIRUBIN NEGATIVE; BLOOD NEGATIVE (NEGATIVE); CLARITY CLEAR (CLEAR); COLOR YELLOW (YELLOW); GLUCOSE NEGATIVE; KETONE NEGATIVE; LEUKO ESTERASE TRACE (NEGATIVE); NITRITE NEGATIVE (NEGATIVE); PH 6.5 (4.5-8.0); UROBILINOGEN 0.2 E.U./dl (0.0-1.0)
[2020-06-22 23:18] LABS: URINE AMPHETAMINES < 1000 (1000ng/ml); URINE BARBITURATES < 200 (200ng/ml); URINE BENZODIAZEPINES < 200 (200ng/ml); URINE CANNABINOIDS (THC) < 50 (50ng/ml); URINE COCAINE < 300 (300ng/ml); URINE METHADONE < 300 (300ng/ml); URINE OPIATES < 300 (300ng/ml); URINE PHENCYCLIDINE < 25 (25ng/ml)
[2020-06-22 23:47] VITALS: BP 186/79
--- NOTE | 2020-06-22 23:48 | NUR ---
PLACED PATIENT IN GOWN AND CHECKED FOR WOUNDS AT THIS TIME. NO WOUNDS NOTED.
[2020-06-23 00:55] VITALS: BP 154/81
--- NOTE | 2020-06-23 00:55 | NUR ---
Time: 54 A 75 year old MALE admitted to 5E under services of GENNA QUEZADA DO. Pt. arrived via bed from ER. Chief complaint: AGGRESSIVE BEHAVIOR AT PRISON. BATOOL HENDERSON
--- NOTE | 2020-06-23 01:15 | NUR ---
ATIVAN GIVEN PER ORDER. SEE MAR
[2020-06-23] MEDS ORDERED: GEODON40 MG PO (01:17)
[2020-06-23] MEDS ORDERED: RIVASTIGMINE TAR6 M1 PO (01:20)
--- NOTE | 2020-06-23 01:22 | NUR ---
MED REC UPDATED PER LIST PROVIDED BY ALF
--- NOTE | 2020-06-23 01:28 | NUR ---
CALLED [facility] AND NOTIFIED THEM OF CONSULT FOR DR. AMES.
--- NOTE | 2020-06-23 02:00 | NUR ---
PATIENT PULLED IV OUT ALSO PULLED ALL NAME AND FALL RISK BRACLETS OFF AND RIPPED UP BOX TISSUES AND CLIMBED OUT OF BED SETTING BED ALARM OFF. PATIENT UNSTEADY ON FEET. PATIENT EXCESSIVE SALIVA NOTED.
--- NOTE | 2020-06-23 02:22 | NUR ---
CALLED DR. ELLIOTT AND NOTIFIED HER THAT PATIENT HAD PULLED IV OUT AND WOULD NOT LAY BACK DOWN IN BED AND PATIENT WAS AT DESK WITH STAFF. SHE SAID CALL HER BACK IF PATIENT GOT MORE AGGITATED.
[2020-06-23] MEDS ORDERED: RIVASTIGMINE1 EAC2 T (02:31)
--- NOTE | 2020-06-23 03:32 | NUR ---
PATIENT STARTING TO FALL ASLEEP. RESTING COMFORTABLE IN RECLINER CHAIR AT NURSES STATION.
--- NOTE | 2020-06-23 05:17 | NUR ---
sleeping in recliner chair at nurses station. no acute distress noted
--- NOTE | 2020-06-23 06:09 | NUR ---
patient sleeping in recliner chair at nurses station.
--- NOTE | 2020-06-23 06:14 | NUR ---
called and spoke with Dr. Suggs about patient sleeping and okay to hold off on IV and blood work for now.
[2020-06-23 08:00] VITALS: BP 148/54
--- NOTE | 2020-06-23 08:30 | NUR ---
PATIENT SITTING IN HALLWAY TO BE OBSERVED MORE CLOSELY BY STAFF. PATIENT NOTED TO BE SPITTING ALL OVER THE FLOOR. RN ASKED PATIENT NOT TO DO SO AND HE JUST CONTINUED WHILE LAUGHING. REDIRECTION INEFFECTIVE.
--- NOTE | 2020-06-23 08:47 | NUR ---
PATIENT IS UNABLE TO RETURN TO [facility]. PER [facility], POLICE HAD TO BE CALLED TO THE [facility] TO ASSIST WITH THE PATIENT.
--- NOTE | 2020-06-23 09:17 | NUR ---
PATIENT CLIMBING OUT OF CHAIR. VERY UNSTEADY. STAFF ASSISTING TO BR DUE TO NEEDING PERICARE. PATIENT BECAME COMBATIVE WITH STAFF. ATTEMPTING TO SPIT AND HIT AT STAFF. NOTIFIED . PATIENT MEDICATED WITH ATIVAN 1MG IM PER ONE TIME ORDER. WILL CONTINUE TO MONITOR.
--- NOTE | 2020-06-23 09:27 | NUR ---
Unable to see patient as the patient was combative/aggressive with engineer technical staff. JOHANN Burris stated she was in the process of getting the patient medicine for these behaviors.
--- NOTE | 2020-06-23 09:45 | NUR ---
PATIENT RESTING WITH EYES CLOSED IN RECLINER CHAIR. ATIVAN EFFECTIVE.
[2020-06-23 12:00] VITALS: BP 161/84
[2020-06-23 16:00] VITALS: BP 156/88
--- NOTE | 2020-06-23 20:00 | NUR ---
NOT ABLE TO OBTAINED VITAL SIGNS, PATIENT IS COMBATIVE AND AGITATED. DR.SHAIKH ESCOBAR.
--- NOTE | 2020-06-23 20:38 | NUR ---
PATIENT MEDICATED WITH IV ATIVAN X1 DOSE FOR COMBATIVE/AGITATION. WILL MONITOR
--- NOTE | 2020-06-23 20:39 | NUR ---
MADE AWARE THAT PATIENT IS BEING COMBATIVE AND REFUSING MEDICATION PO GEODON AND APRESOILINE, PATIENT TRIED TO GET OUT OF HIS CHAIR AND ATTEMPTED TO GRAB AN AIDE, PATIENT THREATING THIS NURSE CALLING HER "MOTHERFUCKER" AND YELLING AT AIDES. ATTEMPTS AT CALMING PATIENT NOTSUCCESFUL. DOCTOR STATED TO PLACE ORDER FOR 1MG IV ATIVAN
--- NOTE | 2020-06-23 21:02 | NUR ---
CALLED BACK STATED THAT OK TO P[LACE ORDER FOR 1:1 SITTER, NET MAKER AWARE. INFORMED THAT [facility] WAS CONSULTED, STATED THAT WHEN THEY HAD PATIENT ON UNIT, IF PATIENT DID NOT CALM DOWN 10 MINUTES AFTER ATIVAN ADMINISTRATION, PATIENT WOULD BE GIVEN IM DOSE OF GEODON. DOCTOR STATED OK, NO NEW ORDERS OTHER THAN 1:1. PATIENT AT THIS TIME HIS STILL ATTEMPTING TO GET OUT OF CHAIR, CURSING AT STAFF AND BEING COMBATIVE, SECURITY IS ON FLOOR HLEPING MONIOTR PATIENT WELL.
--- NOTE | 2020-06-23 22:00 | NUR ---
PATIENT MEDICATED WITH IM GEODON X1 DOSE TO LEFT DELTOID. PATIENT IS STILL COMBATIVE/AGITATED/CURSING. WILL CONTINUE TO MONITOR
--- NOTE | 2020-06-23 23:00 | NUR ---
IM GEODON EFFECTIVE. PATIENT IS RESTING QUIETLY IN CHAIR, EYES CLOSED. NO OVERT DISTRESS NOTED
[2020-06-24] VITALS: BP 166/89
--- NOTE | 2020-06-24 | NUR ---
STAFF MOVED PATIENT TO BED, PATIENT GIVEN COMPLETE BATH, WASW INCONT OF B&B. NEW BEDDING CHANGE WELL. NO OVERT DISTRESS NOTED, RESTING QUIETLY. 1:1 SITTER IN ROOM, BED LOCKED IN LOWEST POSITION, ALARM MAINTAINED
--- NOTE | 2020-06-24 05:27 | NUR ---
PATIENT WOKE UP STATING HE HAD TO PEE, YELLING AT STAFF, DID NOT WANT ASSISTANCE WITH URINAL. PATIENT DID URINATE BUT WAS DIFFICULT TIME GETTING URINAL BACK. PATIENT THEN STATED HE WANTED TO GO BACK TO SLEEP. 1:1 PRESENT AT BEDSIDE. BED LOCKED IN LOWEST POSITION, ALARM MAINTAINED
--- NOTE | 2020-06-24 05:37 | NUR ---
MADE AWARE THAT PATIENT IS AGITATED AGAIN. SPITING EVERY WHERE, YELLING AT STAFF AND REFUSING LAB WORK. INFORMED NO OFFICIAL ATTEMPT AT A LAB DRAWN WAS DONE D/T PATIENT BEING AGITATED AND THREATING STAFF, PATIENT ALSO HAS HEP C. STATED THAT WAS OK TO TO PLACE ORDER FOR X1 1MG IV ATIVAN.
--- NOTE | 2020-06-24 05:40 | NUR ---
PATIENT MEDICATED WITH IV ATIVAN X1 DOSE FOR AGITATION. WILL MONITOR
--- NOTE | 2020-06-24 06:40 | NUR ---
ATIVAN EFFECTIVE. RESTING QUIETLY IN BED, EYES CLOSED. NO OVERT DISTRESS NOTED.
[2020-06-24 08:24] VITALS: BP 165/83
--- NOTE | 2020-06-24 09:05 | NUR ---
PT AWAKE, ALERT, PLEASANTLY CONFUSED/DISORIENTED. SITTING UP IN BED WITH 1:1 PRESENT IN ROOM WITH PT. LUNGS DIMINISHED T/O. ROOM AIR. ABD SOFT & NONTENDER. EATING BREAKFSAT AT THIS TIME. BED ALARM ON. CALL LIGHT WITHIN REACH AT ALL TIMES.
[2020-06-24 13:12] VITALS: BP 167/82
[2020-06-24 16:05] VITALS: BP 132/69
[2020-06-24 20:00] VITALS: BP 155/80
--- NOTE | 2020-06-24 20:57 | NUR ---
PATIENT MEDICATED WITH RESTORIL FOR C/O INSOMNIA. WILL MONITOR
[2020-06-25] VITALS: BP 154/74
--- NOTE | 2020-06-25 02:43 | NUR ---
GARMENT SORTER MADE THIS NURSE AWARE THAT PATIENT WAS PINKED SLIP IN ER, INFORMATION WAS NOT PASSED IN REPORT. INFORMED THAT ONLY A COPY WAS ON CHART AND NOT ORIGINAL. INFORMED OF THIS. WAS ASKED TO CALL [facility] AND SEE IF THEY WOULD ACCEPT PATIENT WITH COPY OF PINK SLIP, THEY STATED NO THAT THEY WOULD NEED A NEW PINK SLIP FROM HOSPITALIST AND NOT FROM ER ANYWAYS. MADE AWARE OF THIS, DOCTOR STATED THAT IF PATIENT DOES GO TODAY TO U, DAY-TEAM CAN SIGN PICK SLIP THEN.
[2020-06-25 06:03] LABS: BASO % 0.3 % (0.0-1.0); EOS # 0.1 10*3/uL (0.0-0.4); EOS % 1.4 % (1.0-4.0); HEMATOCRIT 38.5 % (42.0-52.0); LYMPH # 2.2 10*3/uL (1.3-4.4); LYMPH % 37.5 % (27.0-41.0); MEAN CELL VOLUME 85.4 fl (80.0-94.0); MEAN CORPUSCULAR HGB 26.4 pg (27.0-31.0); MEAN CORPUSCULAR HGB CONC 30.9 g/dl (33.0-37.0); MEAN PLATELET VOLUME 10.7 fl (9.6-12.3); MONO # 0.5 10*3/uL (0.1-1.0); NEUT % 51.3 % (47.0-73.0); PLATELET COUNT AUTOMATED 278 10*3/uL (130-400); RED BLOOD COUNT 4.51 10*6/uL (4.50-5.90); WHITE BLOOD COUNT 5.8 10*3/uL (4.8-10.8)
[2020-06-25 06:16] LABS: CREATININE 2.18 mg/dL (0.70-1.30); POTASSIUM 3.9 mmol/L (3.5-5.1)
[2020-06-25 07:27] VITALS: BP 174/78
--- NOTE | 2020-06-25 07:55 | NUR ---
DR PEARCE PRESENT ON FLOOR TO ASSESS PATIENT AND DISCUSS PLAN OF CARE. VS AND MEDS REVIEWED
--- NOTE | 2020-06-25 08:00 | NUR ---
24 HR chart check completed.
--- NOTE | 2020-06-25 08:15 | NUR ---
AWAKE, ORIENTED. RESPIRATIONS EASY. LUNGS DIMINISHED, CLEAR. PULSE OX 100% RA. IV FLUIDS INFUSING PER ORDER. CALL LIGHT WITHIN REACH. BED ALARM AND 1:1 MAINTAINED.
--- NOTE | 2020-06-25 09:45 | NUR ---
DR TOWNSEND HERE TO ASSESS PATIENT AND DISCUSS PLAN OF CARE
--- NOTE | 2020-06-25 11:00 | NUR ---
IN BED. 1:1 MAINTAINED. PATIENT ALERT AND COOPERATIVE. BED ALARM MAINTAINED
[2020-06-25 11:05] VITALS: BP 161/72
--- NOTE | 2020-06-25 13:00 | NUR ---
U CONTACTED AND INFORMED PATIENT DISCHARGED AND PREPARING TO COME TO U UNIT. INFO REVIEWED.
--- NOTE | 2020-06-25 13:45 | NUR ---
DR PEARCE CONTACTED AND INFORMED DATE AND TIME NEEDED ON PINK SLIP PER [facility]
--- NOTE | 2020-06-25 14:30 | NUR ---
PATIENT CLIMBING OOB. REFUSING TO RETURN TO BED, PLACED IN GAVIN-CHAIR IN [place] FOR CLOSE OBSERVATION
[2020-06-25 16:00] VITALS: BP 150/70
--- NOTE | 2020-06-25 17:37 | NUR ---
PATIENT WAS TO BE DISCHARGED TO [facility], DR. PEARCE SIGNED PAPERS. [facility] CALLED AND REFUSED THE PATIENT DUE TO MRSA OF URINE. PHONED DR. PEARCE HE STATED THE MRSA WAS IN A COLONISED STATE AND TREATMENT NOT NEEDED ACCORDING TO POLICY. DR. AMES STILL REFUSED TO TAKE PATIENTT. NURSING HEAD OF BIOLOGY NOTIFIED. WE ARE KEEPING PATIENT FOR CASEWORKERS TO PLACE HIM TOMORROW. PATIENT WILL STAY ADMITTED TO .
[2020-06-25 20:00] VITALS: BP 166/72
--- NOTE | 2020-06-25 21:10 | NUR ---
BED ALARM WENT OFF, CAUGHT PATIENT CRAWLING OVER BED RAIL AND STOOD UP, STATED HE HAD TO PEE. URINAL PROVIDED AND AND PLACED BACK IN BED WITH DINNER TRAY REHEATED PER PATIENT'S REQUEST. BED IS LOCKED IN LOWEST POSITION, ALRAM MAINTAINED. CALL LIGHT REINFORCMENT PROVIDED AND LEFT WITHIN REACH
--- NOTE | 2020-06-25 22:25 | NUR ---
BED ALARM SOUNDED. PATIENT CLIMBED OVER RAILING OF BED AGAIN. PATIENT ATTEMPED TO GET WET WIPES FOR FACE. PATIENT PROVIDED WITH EXTRAS AT BEDSIDE ONCE PLACED BACK UP IN BED. CALL LIGHT REINFORCMENT PROVIDED AGAIN, PATIENT DEMONSTRATED USE, STATES HE WILL USE IT NEXT TIME. BED LOCKED IN LOWEST POSITION, ALARM MAINTAINED, CALL LIGHT WITHIN REACH. BED ALARM ZONE MINIMIZED ON BED.
[2020-06-26] VITALS: BP 141/67
--- NOTE | 2020-06-26 04:00 | NUR ---
BED ALARM WENT OFF, PATIENT ATTEMPT TO GET OUT OF BED BY-SELF. STATED HE HAD TO GO TO THE BATHROOM, NOTED PATIENT WAS INCONT OF URINE. PATIENT WAWS PROVIDED WITH BRENDA-CARE AND REPOSITIONED UP IN BED. BED LOCKED IN LOWEST POSITION, ALARM MAINTAINED. CALL LIGHT WITHIN REACH
--- NOTE | 2020-06-26 07:30 | NUR ---
PT RESTING IN BED. RESPS EASY AND NON LABORED. NO S/S OF DISTRESS NOTED. VSS. WHITE BOARD UPDATED. PT A/O SELF AND PLACE. REFUSING TO HAVE BLOOD SUGAR CHECKED AT THIS TIME-WILL TRY AGAIN. DENIES DYSURIA/FREQUENCY. WILL CONTINUE TO MONITOR. BED ALARM ON. CALL LIGHT WITHIN REACH.
[2020-06-26 08:00] VITALS: BP 160/71
--- NOTE | 2020-06-26 09:31 | NUR ---
Waiter/Waitress Formal in to talk to patient. Patient states lives at ALONE with NO ONE. There are 0 steps in the home. Physician: NIYA SALDAÑA Pharmacy: [facility] Home health services: NONE Patient's level of ADLs: MINIMAL ASSIST Patient has working utilities: YES DME: CANE Follow-up physician's appointment after d/c: WILL BE MADE BY RN HOSPITALIST COORDINATOR Does patient want to access PORTAL?: NO Discharge plan PATIENT STATES HE LIVES ALONE. PATIENT STATES THAT HE USES A CANE TO AMBULATE. PATIENT STATED THAT HE DOES HAVE GRAB BARS WHEN USING THE SHOWER. PATIENT REPORTED THAT HE DOES STILL DRIVE. HOWEVER, WHEN ASKED ABOUT WHO HIS DOCTOR WAS PATIENT FIRST STATED IT WAS THE DOCTOR LOCATED AT [facility], THEN [facility] WHEN ASKED AGAIN. PATIENT DID STATED THAT HE DOES WANT TO GO GET THERAPY. RECRUITMENT AND OUTREACH ASSISTANT EXPLAINED TO HIM THE LOCAL FACILITIES, RECRUITMENT AND OUTREACH ASSISTANT EXPLAINED THE FACILITIES IN [place], [place], AND [place]. THE PATIENT STATED TO SEND HIM SOME WHERE IN [place] BECAUSE HE HAS BEEN TO A FACILITY IN THE PAST UP THERE. RECRUITMENT AND OUTREACH ASSISTANT WILL ATTEMPT TO REACH OUT TO FAMILY. A REFERRAL HAS BEEN SENT TO [facility]. RECRUITMENT AND OUTREACH ASSISTANT TO FOLLOW.. MOLLY JESUS
--- NOTE | 2020-06-26 09:55 | NUR ---
CALLED PHARMACY FOR THEM TO SEND UP TRACY
[2020-06-26 10:32] VITALS: BP 150/70
--- NOTE | 2020-06-26 10:45 | NUR ---
Occupational Therapy evaluation completed on five with full evaluation to follow. Recommend occupational therapy per plan of care and SNF upon discharge. Thank you for this referral. Verna Joshi OTR/L
--- NOTE | 2020-06-26 11:00 | NUR ---
PER DR WEBER DISCONTINUE PTS BLOOD SUGAR CHECKS
--- NOTE | 2020-06-26 11:13 | NUR ---
PT/OT ASSISTED PT TO CHAIR. PT CALM/COOPERATIVE. RESPS EASY AND NON LABORED. WILL CONTINUE TO MONITOR. REQUESTING HIS GLASSES-CHECKED PTS CLOTHING LIST AND THEY ARE NOT ON THERE NOR IN ROOM. BODY ALARM INTACT. CALL LIGHT WITHIN REACH.
--- NOTE | 2020-06-26 12:19 | NUR ---
PHYSICAL THERAPY Physical Therapy evaluation completed on 5th floor with full evaluation to follow. Recommend physical therapy per plan of care and SNF upon discharge. Thank you for this referral. Bryan Durand SPT Marychuy Mukherjee PT
--- NOTE | 2020-06-26 13:13 | NUR ---
ENTERPRISE APPLICATION ANALYST FAXED PT/OT EVALS TO [facility] FOR REVIEW.
--- NOTE | 2020-06-26 13:30 | NUR ---
OT NOTE Pt was seen this P.M. 1:1 for 12 minute OT session with nurse present for observation only. Upon arrival pt's body alarm was sounding as pt was attempting to stand from the chair. Redirected pt and completed sit to stand from chair level with Young followed by functional mobility to the bathroom with CGA LIBRARY TECHNICAL ASSISTANT. Throughout pt was very impulsive requiring verbal prompts to correct, pt presented with poor carryover. Pt then completed functional mobility to the EOB with CGA LIBRARY TECHNICAL ASSISTANT and continued poor safety awareness and being impulsive. Pt transferred sit to supine with SBA. There he was left with bed rails up for safety, bed alarm activated, and call light in hand. Continue with POC as able. BHARGAV Galindo/Juvencio
--- NOTE | 2020-06-26 14:15 | NUR ---
[facility] DENIED THE PATIENT. CATALYST CONCENTRATION OPERATOR FAXED REFERRAL TO [facility] TO BE REVIEWED.
--- NOTE | 2020-06-26 14:34 | NUR ---
NEIGHBOR BRIANNA CALLED -PASSWORD PROVIDED. UPDATED ON POC. QUESIMANI ANSWERED. SHE STATES SHE WOULD LIKE TO SPEAK WITH CASE MANAGEMENT REGARDNG PATIENTS DISCHARGE PLANS BECAUSE THE REST OF HIS FAMILY IS NOT AROUND. WILL SEND MESSAGE TO CASE MANGEMENT
--- NOTE | 2020-06-26 15:30 | NUR ---
GAS STOVE SERVICER HELPER RECEIVED RN MESSAGE TO CONTACT BRIANNA. GAS STOVE SERVICER HELPER REACHED OUT TO BRIANNA ONEAL AT [phone]. BRIANNA STATED THE PATIENT DOES NOT REALLY HAVE ANY FAMILY IN THE AREA. HE HAS A SISTER WHO HAS DEMENTIA AND A NEPHEW EMILY DOUGLAS. HOWEVER, EMILY TAKES CARE OF HIS SISTER. THE PATIENT DOES HAVE A SON NAMED DAHLIA CUNNINGHAM, BUT HE HAS NO CONTACT WITH HIM. BRIANNA ASKED ABOUT DISCHARGE PLANS. GAS STOVE SERVICER HELPER EXPLAINED REFERRALS OUT. BRIANNA STATED SHE IS DEBATING ON THE HAVING THE PATIENT MOVE INTO HER HOME BECAUSE SHE "DOES NOT WANT HIM TO BE LEFT BEHIND". SHE STATED THE PATIENT DOES USE A CANE. THE PATIENT CURRENTLY LIVES ALONE AND HAS STEPS INTO THE BASEMENT. SHE STATED THE PATIENTS LAUNDRY IS IN THE BASEMENT. PRIOR TO THIS ADMISSION SHE RECENTLY LEARN THIS AND TOLD THE PATIENT SHE WOULD BE DOING HIS LAUNDRY HERE ON OUT. SHE IS GOING TO SPEAK WITH HER 13 YEAR OLD SON AND WAY PROS AND CONS ABOUT MOVING THE PATIENT INTO HER HOME. GAS STOVE SERVICER HELPER WILL FOLLOW UP WITH HER TOMORROW.
[2020-06-26 16:00] VITALS: BP 161/80
[2020-06-26 20:00] VITALS: BP 148/78
--- NOTE | 2020-06-26 20:55 | NUR ---
BED ALARM WENT OF. PATIENT ATTEMPTING TO GO TO RESTROOM. INCONT EPISODE OF URINE, BUT WAS ASSISTED TO TOILET FOR BM. PATIENT WAS CLEANED AND PROVIDED BRENDA-CARE. NEW BEDDING AND GOWN PLACED. BED IS LOCKED IN LOWEST POSITION, ALARM MAINTAINED. CALL LIGHT REINFORCMENT, AND LEFT WITHIN REACH
--- NOTE | 2020-06-26 21:06 | NUR ---
PATIENT MEDICATEDW ITH RESTORIL FRO C/O INSOMNIA. WILL MONITOR
--- NOTE | 2020-06-26 21:10 | NUR ---
PATIENT MEDICASTED WITH TYLENOL PER REQUEST FOR SLIGHT DISCOMFORT. WILL MONITOR
--- NOTE | 2020-06-26 21:40 | NUR ---
BED ALARM WENT OFF. PATIENT GETTING OUT OF BED, PATIENT BELIEVES THAT HE IS ON A PLANE, REORIENTATION PROVIDED. PATIENT DID NOT WANT TO GET BACK INTO BED. PATIENT PLACED IN GAVIN-CHAIR, PATIENT ACCEPTING THIS. PATIENT GIVEN ORANGE JUICE, WAS REQUESTING ALCOHOL.
--- NOTE | 2020-06-26 22:00 | NUR ---
PATIENT WAS ABLE TO TAKE HIS TRAY OFF OF GAVIN-CHAIR. PLACED BACK INTO BED, PATIENT STATED HE WOULD TRY TO SLEEP. BED IS LOCKED IN LOWEST POSITION, ALARM MAINTAINED. CALL REINFORCMENT AND LEFT WITHI NREACH
[2020-06-27] VITALS: BP 153/66
--- NOTE | 2020-06-27 04:25 | NUR ---
BED ALARM WENT OFF. PATIENT STATED HE WAS GOING TO CLOSE HIS DOOR, JUST WANTED LIGHT OFF. REPOSITIONED UP IN BED. BED LOCKED IN LOWEST POSITION, CALL LIGHT WITHIN REACH. LIGHT S TURNED OFF PER PATIENT REQUEST
[2020-06-27 08:00] VITALS: BP 185/85
--- NOTE | 2020-06-27 08:04 | NUR ---
BUGGY OPERATOR FAXED REFERRAL TO [facility] FOR RE[facility].
--- NOTE | 2020-06-27 08:52 | NUR ---
[facility] DENIED THE PATIENT.
--- NOTE | 2020-06-27 10:45 | NUR ---
OT NOTE Pt laying supine in bed with head slightly elevated agreeable to 12 minute OT session. Identified by name and date of with no complaints to date. Transfer supine to EOB CGA. Sit-stand CGA with w/w for UB support, pt presented with mild retrograde posture when standing requiring Young to correct. Fuctional mobility from EOB to bathroom CGA with w/w. Transferring on and off toilet CGA with w/w. Activity tolerance challenged by functional mobility from bathroom to door way and back to elisa-chair at CGA with w/w. Pt was able to tolerate approx 5 minutes of activity before fatigue. Pt was left in elisa-chair with table connected. alarm on, and call light in reach. Throughout entire session pt required constant verbal prompts for attention to task. Continue d/c recommended SNF. SHELBY Buchanan/BHARGAV Moran/Juvencio
--- NOTE | 2020-06-27 11:05 | NUR ---
[facility] DENIED THE PATIENT.
--- NOTE | 2020-06-27 11:15 | NUR ---
PHYSICAL THERAPY TREATMENT TIME: OUT 10:55 18 MINUTES PRESENTATION: Patient was supine in bed Head of bed elevated Bed alarm on No IVs No spO2 Patient's RN CARI says patient was aggitated this morning. TRANSFERS: Supine to sitting on EOB with MIN A X 2 Sitting on EOB : SBA/CGA STS from EOB : CGA TREATMENT: AMBULATION with Wh Walker and CGA for 50' x 2 Patient able to turn Wh Walker 180 degrees without LOB. Patient had one LOB LOB required MIN A X 1 to correct to upright COMPLAINTS/RESPONSES: One minor LOB No increased pain CONCLUSION: Patient was left in elisa-chair with tray table locked in front of patient. Chair alarm tested and attached to patient Call light within reach LEs slightly elevated JIMY FIERRO FILM AND VIDEO EDITOR
--- NOTE | 2020-06-27 11:53 | NUR ---
ASBESTOS WIRE FINISHER LEFT MESSAGE FOR [facility] TO SEE IF A RESIDENTIAL REVIEW WAS COMPLETED. ASBESTOS WIRE FINISHER RECEIVED PASRR FROM [facility]. ASBESTOS WIRE FINISHER LEFT MESSAGE FOR BRIANNA ONEAL. ASBESTOS WIRE FINISHER TO FAX REFERRAL TO [facility] [place].
[2020-06-27 12:00] VITALS: BP 185/72
--- NOTE | 2020-06-27 12:25 | NUR ---
SIMONIZER IN TO SEE PATIENT. PATIENT SEEN SITTING IN CHAIR. SIMONIZER EXPLAINED TO THE PATIENT DIFFICULTY FINDING PLACEMENT. PATIENT STATED ANYWHERE WOULD BE FINE. SIMONIZER TO CONTINUE SENDING REFERRALS.
--- NOTE | 2020-06-27 13:18 | NUR ---
Received call from Veronica at [facility]. They are not able to accept patient due to his incontinence. nitro worker notified.
--- NOTE | 2020-06-27 14:28 | NUR ---
BUCKET PUSHER FAXED REFERRAL TO [facility] FOR REVIEW.
[2020-06-27 16:00] VITALS: BP 172/64
[2020-06-27 20:00] VITALS: BP 164/79
--- NOTE | 2020-06-27 20:00 | NUR ---
PATIENT SITTING IN GAVIN-CHAIR, PLEASANTLY DISORIENTED. RESPIRATIONS EASY. LUNGS DIMINISHED, CLEAR. PULSE OX 98% RA. CALL LIGHT WITHIN REACH. NO VOICED COMPLAINTS. BODY ALARM IN PLACE FOR SAFETY
--- NOTE | 2020-06-27 20:28 | NUR ---
24 HR chart check completed.
--- NOTE | 2020-06-27 21:31 | NUR ---
MEDICATED WITH TYLENOL AND RESTORIL PER PRN ORDER FOR COMPLAINTS OF GENERALIZED DISCOMFORT RATING A 5 AND TO ASSIST WITH SLEEP. CALL LIGHT WITHIN REACH. WILL MONITOR
--- NOTE | 2020-06-27 22:15 | NUR ---
RESTING IN BED. AWAKE BUT DROWSY. RESPIRATIONS EASY. CALL LIGHT WITHIN REACH. BED ALARM IN PLACE FOR SAFETY
[2020-06-28] VITALS: BP 129/68
--- NOTE | 2020-06-28 | NUR ---
SLEEPING WITH NO ACUTE DISTRESS NOTED. RESPIRATIONS EASY. VSS. CALL LIGHT WITHIN REACH. BED ALARM MAINTAINED FOR SAFETY
--- NOTE | 2020-06-28 03:00 | NUR ---
SLEEPING. BED ALARM MAINTAINED
--- NOTE | 2020-06-28 06:00 | NUR ---
SLEPT THROUGHOUT NIGHT WITH NO DISTRESS NOTED. RESPIRATIONS EASY. CALL LIGHT WITHIN REACH. NO VOICED COMPLAINTS THIS SHIFT. BED ALARM MAINTAINED FOR SAFETY
--- NOTE | 2020-06-28 07:48 | NUR ---
LACQUER MACHINE FEEDER LEFT MESSAGE FOR BRIANNA ASKING FOR A RETURN CALL.
--- NOTE | 2020-06-28 07:52 | NUR ---
OPEN CUT EXAMINER FAXED REFERRAL TO [facility] FOR REVIEW.
[2020-06-28 08:00] VITALS: BP 146/68
--- NOTE | 2020-06-28 08:27 | NUR ---
WOOD CABINET FINISHER MADE REFERRAL TO [facility].
--- NOTE | 2020-06-28 08:29 | NUR ---
HEALTH RECORD TECHNICIAN FAXED REFERRAL TO [facility]
--- NOTE | 2020-06-28 08:37 | NUR ---
COLOR DEVELOPER LEFT MESSAGE FOR ADMISSIONS FOR [facility].
--- NOTE | 2020-06-28 08:53 | NUR ---
SENIOR RUBY DEVELOPER RECEIVED CALL BACK FROM BRIANNA. SENIOR RUBY DEVELOPER PROVIDED UPDATE ON THE REFERRAL PROCESS. BRIANNA STATED SHE IS NOT ABLE TO MOVE THE PATIENT IN FOR 19/05 CARE, BUT WOULD BE WILLING TO CHECK IN ON HIM DAILIY AND BRING HIM DOWN TO HER HOME THROUGHOUT THE DAY. BRIANNA STATED THAT PRIOR TO COMING INTO THIS FACILITY ALL THE PATIENTS UTILITIES WERE ON AND WORKING. SHE STATED THE PATIENT DOES PAY HIS OWN BILLS AND NEVER HAD A PROBLEM DOING SO. SENIOR RUBY DEVELOPER EXPLAINED THE APS REFERRAL. SENIOR RUBY DEVELOPER TO FOLLOW.
--- NOTE | 2020-06-28 09:09 | NUR ---
[facility] IS ABLE TO ACCEPT THE PATIENT. PRECERT IS BEING STARTED. SEWER CONTRACTOR WILL FAX COVID RESULTS AND PASRR TO THE FACILITY.
--- NOTE | 2020-06-28 09:20 | NUR ---
OT NOTE Attempted to see pt this A.M. for OT session and upon arrival pt was eating his breakfast. Will check back at a later time and continue with POC as able. BHARGAV Galindo/Juvencio
--- NOTE | 2020-06-28 09:41 | NUR ---
TOP AND SEAT COVER FITTER FAXED UPDATES TO [facility] [employer]. TOP AND SEAT COVER FITTER SPOKE WITH LYNDA TO HAVE THE PASRR SWITCHED TO [facility]. ONCE COMPLETED TOP AND SEAT COVER FITTER WILL FAX TO [facility] [employer]. TOP AND SEAT COVER FITTER RECEIVED PHONE CALL FROM PATIENTS INSURANCE CASE NARINDER VELEZ [phone]. TOP AND SEAT COVER FITTER PROVIDED AN UPDATE.
--- NOTE | 2020-06-28 11:00 | NUR ---
OT NOTE Pt was seen this A.M. 1:1 for 15 minute OT session. Upon arrival pt was sitting upright in the elisa chair. Pt identified by name and and had no complaints at this time. pt completed sit to stand from chair level with modA X 2 and use of w/w for UE support. Functional mobility completed to the bathroom with Young and use of w/w. Pt required assist for walker navigation and safety awareness. Pt transferred on to the standard commode with Young for assist with alignment of commode off with modA due to low surface. Functional mobility completed to the bedroom with Young for walker navigation. Challenged pt's dynamic standing balance while weight shifting, crossing midline, and reaching over all planes. Pt was able to maintain F+ standing balance throughout. Pt was left sitting upright in the elisa chair with call light in hand, lap tray in place, and body alarm activated for safety. Continue with rec D/C plan to SNF. DANITA Galindo
--- NOTE | 2020-06-28 11:01 | NUR ---
MEDICATED WITH PRN TESSALON IDALMIS PER ORDER AND REQUEST.
--- NOTE | 2020-06-28 11:03 | NUR ---
PHYSICAL THERAPY TREATMENT TIME: IN 10:45 AM - OUT 11:02 AM 15 MINUTES TOTAL PRESENTATION: Patient sitting in elisa-chair finishing up with meal. Chiar alarm on and attached to patient Tray table locked in front of patient No complaints No aggitation noted COMPLAINTS: None TRANSFERS: STS from elisa-chair : MOD A X 2 Verbal cues for pushing off armrests of chair with one hand. STS from commode: MOD A X 2 TREATMENT: Gait with Wh Walker and CGA Gait distance : 45' x 1 Verbal cues for upright posture, increased step-length and leaning forwards onto walker. Patient performed TUG TEST in 1 minute 55 seconds Patient required MOD A X 2 to STS from elisa-chair during TUG TEST. RESPONSE TO TREATMENT: Patient tolerated treatment with no LOB No noticable aggitation Slow gait daniel No increased pain anywhere CONCLUSION: Patient left in elisa-chair with Brakes locked, call light within reach Chair alarm tested and attached to patient LEs in low position Tray table locked in front of patient Call light within reach JIMY FIERRO FREELANCE INTERPRETER/TRANSLATOR
[2020-06-28 12:00] VITALS: BP 142/69
--- NOTE | 2020-06-28 14:09 | NUR ---
MEDICATED WITH ULTRAM PER ORDER AND REQUEST.
--- NOTE | 2020-06-28 14:57 | NUR ---
SWITCH ADJUSTER IN TO SEE THE PATIENT. SWITCH ADJUSTER SPOKE WITH THE PATIENT AND INFORMED HIM HE WAS ACCEPTED TO [facility]. PATIENT WAS EXCITED AND UNDERSTANDING. SWITCH ADJUSTER ATTEMPTED TO FOLLOW UP WITH THE PRECERT WITH [facility], SWITCH ADJUSTER WAS UNABLE TO SPEAK WITH SOMEONE AND UNABLE TO LEAVE A RETURN CALL BACK NUMBER.
--- NOTE | 2020-06-28 15:23 | NUR ---
DRY STARCH OPERATOR SPOKE WITH [facility]. PRECERT IS PENDING.
[2020-06-28 16:00] VITALS: BP 169/78
--- NOTE | 2020-06-28 16:05 | NUR ---
DR. DIEGO AWARE OF PATIENT WANTING IV OUT. OK TO REMOVE AND LEAVE OUT.
--- NOTE | 2020-06-28 16:16 | NUR ---
OCCUPATIONAL THERAPY CO-SIGN I approve of the Occupational Therapy notes written above. TYSON AJ, OTR/L
--- NOTE | 2020-06-28 19:36 | NUR ---
24 HR chart check completed.
[2020-06-28 20:00] VITALS: BP 173/80
--- NOTE | 2020-06-28 20:00 | NUR ---
RESTLESS, REPEATEDLY CLIMBING OOB. ATTEMPTED TO REORIENT PATIENT AND ASSIST FOR COMFORT. RESPIRATIONS EASY. LUNGS DIMINISHED, CLEAR. PULSE OX 100% RA. NON-PROD COUGH. CALL LIGHT WITHIN REACH. BED ALARM MAINTAINED FOR SAFETY
--- NOTE | 2020-06-28 21:10 | NUR ---
MEDICATED WITH TYLENOL AND RESTORIL TP ASSIST WITH GENERALIZED ACHES AND SLEEP. WILL MONITOR
--- NOTE | 2020-06-28 22:00 | NUR ---
MEDS BECOMING EFFECTIVE, PATIENT RESTING IN BED MORE CALMLY. WILL MONITOR
--- NOTE | 2020-06-28 23:00 | NUR ---
MEDS EFFECTIVE. SLEEPING. RESPIRATIONS EASY. CALL LIGHT WITHIN REACH. BED ALARM MAINTAINED FOR SAFETY
--- NOTE | 2020-06-29 00:30 | NUR ---
SLEEPING. NO DISTRESS NOTED. RESPIRATIONS EASY. VSS.
[2020-06-29 04:00] VITALS: BP 160/74
--- NOTE | 2020-06-29 05:00 | NUR ---
AWAKE, CLIMBING OOB. TOILETED AND RETURNED TO BED. BED ALARM REAPPLIED
[2020-06-29 08:00] VITALS: BP 173/87
--- NOTE | 2020-06-29 09:26 | NUR ---
OT NOTE Pt laying supine in bed with head elevated, agreeable to 25 minute OT session. Identified by name and date of with no complaints to date. Transfer from supine to EOB Young for getting to EOB, balance F- at EOB. Young to [facility] pants over feet, CGA to pull up over hips. Sit-stand modA. Functional mobility from EOB to bathroom CGA with w/w. Pt presented with retrograde posture when walking requiring Young to correct. Transferring on commode CGA with grab bar and w/w, transferring off commode modA due to low rise commode. hygiene SBA. Functional mobility from bathroom to end of hallway back to elisa chair CGA with w/w presenting with unsteadiness requiring Young to correct, tolerating approx 5 minutes of activity without fatigue. Pt was left in elisa chair with alarm active and call light in reach. Continue d/c recommended SNF. SHELBY Buchanan/BHARGAV Moran/Juvencio
--- NOTE | 2020-06-29 09:35 | NUR ---
PRECERT IS PENDING. [facility] FAXED PASSR TO [facility].
--- NOTE | 2020-06-29 09:37 | NUR ---
UNDERGROUND REPAIRER FAXED UPDATES TO [facility].
[2020-06-29 12:00] VITALS: BP 149/68
--- NOTE | 2020-06-29 12:07 | NUR ---
POLY ATTEMPTED TO FOLLOW UP WITH [facility] UNABLE TO LEAVE A VOICE MESSAGE. WILL CALL BACK AT A LATER TIME.
--- NOTE | 2020-06-29 12:34 | NUR ---
PHYSICAL THERAPY TREATMENT TIME: IN 09:05 AM - OUT 09:30 AM 25 MINUTES TOTAL PRESENTATION: Patient was in supine in bed with head of bed elevated. Bed alarm on No spO2 No IVs COMPLAINTS: No complaints of pain TRANSFERS: Supine to sitting on EOB : CGA X 1 Sitting on EOB: SBA STS from EOB: MIN A x 2 STS from commode: MOD A X 2 VERBAL CUES FOR HAND PLACEMENT TREATMENT: GAIT with Wh Walker and CGA for 60' X 2, 50' X 2. Verbal cues for increasing daniel and step length during gait RESPONSE TO TREATMENT: ONE MODERATE LOB IN RETROGRADE REQUIRING MOD A x 1 TO CORRECT TO UPRIGHT POSTURE. Good overall balance except for the one retrograde LOB. No complaints of increased pain post treatment CONCLUSION: Patient left in elisa-chair with call light within reach Chair alarm tested and attached to patient Patient with tray table locked in front of patient Call light within reach LEs in low position JIMY FIERRO GORE MAKER
--- NOTE | 2020-06-29 14:09 | NUR ---
SEATING AND MOBILITY TECHNOLOGIST LEFT MESSAGE FOR MOLLY. AWAITING RETURN CALL.
--- NOTE | 2020-06-29 15:00 | NUR ---
MATHEMATICS TEACHER SPOKE WITH THE PATIENT. PATIENT STATED HE WAS TIRED. MATHEMATICS TEACHER EXPLAINED WAITING ON PRECERT. PATIENT UNDERSTOOD. MATHEMATICS TEACHER SPOKE WITH JOHANN BARRETT ABOUT THIS.
--- NOTE | 2020-06-29 15:25 | NUR ---
LIQUOR BRIDGE OPERATOR RECEIVED CALL BACK FROM GABRIELA. PRECERT HAS BEEN OBTAINED PATIENT CAN ADMIT TO THEIR FACILITY TODAY. LIQUOR BRIDGE OPERATOR NOTIFIED RN HOSPITALIST VANESSA OF THIS, RN NENA, AND SPOKE WITH WORK PANAMA HAT HYDRAULIC PRESS OPERATOR THIS LIQUOR BRIDGE OPERATOR IS LEAVING FOR THE DAY. PATIENT WILL BE GOING TO: [facility] [address] [place] [address] P:[phone] F:[phone] PATIENTS ADDITIONAL CONTACT IS BRIANNA ONEAL, NEIGHBOR, . LIQUOR BRIDGE OPERATOR DID LEAVE MESSAGE FOR BRIANNA EXPLAINING THE PATIENT WOULD BE DISCHARGING THIS EVENING AND TO CONTACT THE FLOOR IF NEEDED.
[2020-06-29 16:00] VITALS: BP 147/69
--- NOTE | 2020-06-29 16:36 | NUR ---
PATIENT TO BE DISCHARGED VIA AMBULANCE.
--- NOTE | 2020-06-29 17:28 | NUR ---
NURSE TO NURSE REPORT GIVEN.
--- NOTE | 2020-06-30 07:37 | NUR ---
OCCUPATIONAL THERAPY CO-SIGN I approve of the Occupational Therapy notes written above. TYSON AJ, OTR/L
--- NOTE | 2020-06-30 08:16 | NUR ---
PHYSICAL THERAPY CO-SIGN I approve of the Physical Therapy notes written above. Marychuy Mukherjee PT
== END 2020-06-29 17:47 | disposition other institution (70) | DRG 682 ==
LOC: ED 21:19 → EDHOLD 23:01 → 5E 23:01
PROVIDERS: Hospitalist; Nurse Practitioner Family; ADMIT Family Medicine; ATTEND Family Medicine
DX: N17.0 Acute kidney failure with tubular necrosis (principal); G93.41 Metabolic encephalopathy; N18.4 Chronic kidney disease, stage 4 (severe); E87.8 Other disorders of electrolyte and fluid balance, not elsewhere classified; F41.1 Generalized anxiety disorder; F63.81 Intermittent explosive disorder; F03.90 Unspecified dementia, unspecified severity, without behavioral disturbance, psychotic disturbance, mood disturbance, and anxiety; E86.0 Dehydration; M19.90 Unspecified osteoarthritis, unspecified site; G89.4 Chronic pain syndrome; M10.9 Gout, unspecified; F32.9 Major depressive disorder, single episode, unspecified; E55.9 Vitamin D deficiency, unspecified; E11.22 Type 2 diabetes mellitus with diabetic chronic kidney disease; E11.65 Type 2 diabetes mellitus with hyperglycemia; R26.2 Difficulty in walking, not elsewhere classified; I12.9 Hypertensive chronic kidney disease with stage 1 through stage 4 chronic kidney disease, or unspecified chronic kidney disease; F14.10 Cocaine abuse, uncomplicated; F10.10 Alcohol abuse, uncomplicated; Z88.0 Allergy status to penicillin; Z98.41 Cataract extraction status, right eye; Z81.8 Family history of other mental and behavioral disorders; I25.2 Old myocardial infarction; Z79.899 Other long term (current) drug therapy; Z86.19 Personal history of other infectious and parasitic diseases

== ENCOUNTER → 2023-08-06 | Outpatient (CLI) | payer MEDICARE, OTHER ==
[~2023-08-06] MED LIST changes: +GEODON40 MG PO; +RIVASTIGMINE TAR6 M1 PO
== END | disposition home or self-care (01) ==
LOC: US 01:26
PROVIDERS: ATTEND Internal Medicine Nephrology
DX: N13.30 Unspecified hydronephrosis (principal); N18.4 Chronic kidney disease, stage 4 (severe); N20.0 Calculus of kidney; N40.0 Benign prostatic hyperplasia without lower urinary tract symptoms

== ENCOUNTER → 2023-11-26 | Outpatient (CLI) | payer MEDICARE, OTHER | LOC: RAD 10:37 | PROVIDERS: ATTEND Internal Medicine Nephrology | DX: J44.1 Chronic obstructive pulmonary disease with (acute) exacerbation (principal); M16.12 Unilateral primary osteoarthritis, left hip ==

== ENCOUNTER 2024-04-11 21:42 | Emergency (ER) | payer MEDICARE, OTHER ==
[~2024-04-11] VITALS: Ht 154.9 cm; Wt 54.5 kg
[2024-04-11 21:56] LABS: BASO % 0.1 % (0.0-1.0); EOS % 0.4 % (1.0-4.0); HEMATOCRIT 44.1 % (42.0-52.0); LYMPH # 2.7 10*3/uL (1.3-4.4); LYMPH % 38.3 % (27.0-41.0); MEAN CELL VOLUME 85.1 fl (80.0-94.0); MEAN CORPUSCULAR HGB 26.3 pg (27.0-31.0); MEAN CORPUSCULAR HGB CONC 30.8 g/dl (33.0-37.0); MONO # 0.5 10*3/uL (0.1-1.0); MONO % 6.5 % (3.0-9.0); NEUT # 3.9 10*3/uL (2.3-7.9); NEUT % 54.4 % (47.0-73.0); PLATELET COUNT AUTOMATED 218 10*3/uL (130-400); RED BLOOD COUNT 5.18 10*6/uL (4.50-5.90); RED CELL DISTRI WIDTH 16.6 % (0-14.5); WHITE BLOOD COUNT 7.1 10*3/uL (4.8-10.8)
[2024-04-11 22:16] LABS: ALKALINE PHOSPHATASE 66 U/L (46-116); BUN 25 mg/dl (9-23); CHLORIDE 108 mmol/L (98-107); ETHYL ALCOHOL < 3.0 mg/dl (<3); POTASSIUM 4.1 mmol/L (3.4-5.1); SGPT/ALT 12 U/L (5-49); TOTAL PROTEIN 7.6 gm/dL (6.0-8.0)
== END 2024-04-12 00:32 | disposition short-term general hospital (02) ==
LOC: ED 21:42
PROVIDERS: Internal Medicine
DX: I60.9 Nontraumatic subarachnoid hemorrhage, unspecified (principal); E11.22 Type 2 diabetes mellitus with diabetic chronic kidney disease; I12.9 Hypertensive chronic kidney disease with stage 1 through stage 4 chronic kidney disease, or unspecified chronic kidney disease; N18.4 Chronic kidney disease, stage 4 (severe); K21.9 Gastro-esophageal reflux disease without esophagitis; F41.9 Anxiety disorder, unspecified; F32.A Depression, unspecified; M10.9 Gout, unspecified; M19.90 Unspecified osteoarthritis, unspecified site; F03.90 Unspecified dementia, unspecified severity, without behavioral disturbance, psychotic disturbance, mood disturbance, and anxiety; F10.10 Alcohol abuse, uncomplicated; F12.10 Cannabis abuse, uncomplicated; F17.210 Nicotine dependence, cigarettes, uncomplicated; Z88.0 Allergy status to penicillin; Z98.890 Other specified postprocedural states